=== PATIENT | male | born 1945 | race Caucasian/White ===

== ENCOUNTER → 2019-11-06 10:25 | Outpatient (CLI) | payer MEDICARE, OTHER, SELFPAY ==
--- NOTE | 2019-11-06 | DI.NM.S_ITS ---
PROCEDURE: NM BONE SCAN WHOLE BODY RADIOPHARMACEUTICAL: 19.7 mCi Tc-99m MDP IV. INDICATIONS: prostate cancer TECHNIQUE: Delayed whole-body scintigrams were obtained approximately 3-4 hours after intravenous injection of radiotracer. Anterior and posterior views were acquired from vertex to feet. Additional left and right oblique views of the pelvis were obtained. COMPARISON: [facility], CT, CT CHEST ABD PEL W CON, 11/06/2019, 11:29. FINDINGS: There is mild asymmetric uptake at the left sternoclavicular joint likely representing degenerative changes as seen on the concurrent CT. Mild periarticular uptake also demonstrated in the shoulders, knees, and feet bilaterally compatible with degenerative changes. No definite suspicious focal uptake to suggest osseous metastatic disease. IMPRESSION: 1. No definite evidence of osseous metastatic disease. Dictated by: Angel Mcnair M.D. on 11/06/2019 at 17:35 Approved by: Angel Mcnair M.D. on 11/06/2019 at 17:44
--- NOTE | 2019-11-06 | DI.CT.S_ITS ---
PROCEDURE: CT CHEST ABD PEL W CON INDICATIONS: prostate cancer TECHNIQUE: After the administration of oral and intravenous contrast, 5 mm thick sections acquired from the lung apices to the symphysis. 5 mm coronal and sagittal reformats were performed, with additional 7 mm coronal MIP reformats through the lungs. For radiation dose reduction, the following was used: automated exposure control, adjustment of mA and/or kV according to patient size. COMPARISON: [place], [place], [place] BONE SCAN WHOLE BODY, 11/06/2019, 14:20. FINDINGS: Image quality: Excellent. CHEST: Lungs and pleura: Within the right lower lobe, there is a 4 mm pulmonary nodule on series 3 image to 37. Mild subpleural scarring is demonstrated within the inferior right middle lobe and left lingula and medial right lower lobe. No pleural effusions or pneumothorax. Central and peripheral airways appear patent and normal in caliber. Mediastinum: Heart size is normal. No pericardial effusion. No mediastinal or hilar adenopathy by size criteria. Thoracic aorta and central pulmonary arteries are normal in size. There is scattered atherosclerotic plaque. Esophagus is normal in caliber. No hiatal hernia. Chest wall: No axillary or supraclavicular adenopathy by size criteria. Thyroid gland is partially visualized. ABDOMEN: Solid organs: Evaluation of the liver demonstrates no focal hepatic lesions. The gallbladder appears within normal limits without calcified gallstones. Biliary system is non-dilated. Pancreas enhances normally. No peripancreatic fat stranding or fluid collections. No pancreatic duct dilatation. The spleen is normal in size. No adrenal nodules. Kidneys demonstrate no definite hydronephrosis. There are bilateral parapelvic renal cysts. Peritoneum and bowel: Bowel loops demonstrate normal wall thickness and caliber. The appendix is normal in appearance. There is colonic diverticulosis without acute diverticulitis. No No free fluid or air. Nodes and vessels: No retroperitoneal or mesenteric adenopathy by size criteria. Aorta and inferior vena cava are normal in size. Miscellaneous: No ventral hernias. PELVIS: Genitourinary: Bladder wall thickness is normal. There is heterogeneous enlargement of the prostate. No definite extraprostatic mass extension. Miscellaneous: No inguinal hernias or adenopathy. Bones: No suspicious bony lesions. No vertebral body compression fractures. IMPRESSION: 1. Small indeterminate 4 mm pulmonary nodule. A followup CT may be performed until months to demonstrate stability. 2. Elsewhere, no definite evidence of metastatic disease. 3. Enlarged heterogeneous prostate gland. No extraprostatic mass extension or evidence of adjacent solid organ invasion. Dictated by: Angel Mcnair M.D. on 11/06/2019 at 16:02 Approved by: Angel Mcnair M.D. on 11/06/2019 at 16:12
[2019-11-06 11:05] LABS: BUN Creatinine Ratio 22.5 (6-22); Blood Urea Nitrogen 27 mg/dL (9-20); Calcium 9.6 mg/dL (8.4-10.2); Carbon Dioxide 27 mmol/L (22-32); Chloride 101 mmol/L (98-107); Estimated Glomerular Filt Rate 58.9 mL/min (>60); Glucose 102 mg/dL (80-110); HEMOLYSIS < 15 (0-50); Potassium 4.6 mmol/L (3.4-5.1); Sodium 137 mmol/L (137-145)
== END ==
PROVIDERS: Referring Provider Specialist; Visit Provider Specialist
DX: C61 Malignant neoplasm of prostate (principal); R91.1 Solitary pulmonary nodule; N28.1 Cyst of kidney, acquired; K57.90 Diverticulosis of intestine, part unspecified, without perforation or abscess without bleeding
CPT/HCPCS: 36415; 71260; 74177; 78306; 80048; A9503; Q9967

== ENCOUNTER → 2019-12-15 10:22 | Outpatient (CLI) | payer MEDICARE, OTHER, SELFPAY ==
--- NOTE | 2019-12-15 | DI.MRI.S_ITS ---
PROCEDURE: MR PELIS WO/W CON INDICATIONS: Malignant neoplasm of prostate TECHNIQUE: Coronal HASTE, axial T1 FSE with fat saturation, 3-plane nonbreath-hold T2 FSE. After the administration of contrast, dynamic axial, delayed axial and coronal VIBE or 2-D FLASH with fat saturation through the pelvis. Optional diffusion weighted imaging and ADC may be performed. COMPARISON: [facility], CT, CT CHEST ABD PEL W CON, 11/06/2019, 11:29. FINDINGS: Image quality: Diffusion weighted and dynamic contrast enhanced images are diagnostic. Prostate: Gland size is 5.1 x 3.9 x 4.5 cm; ellipsoid gland volume is 47 mL. There is heterogeneous enlargement of the transition zone compatible with BPH. Lesion size(s): Lesion 1: 1.7 x 1.1 x 1.3 cm. Lesion 2: 1.1 x 1.0 x 1.4 cm. Lesion 3: 1.4 x 1.4 x 1.4 cm Lesion location(s) (sector): Lesion 1: Left posterior peripheral zone at the apex of the prostate. Lesion 2: Posterior peripheral zone along the midline at the apex of the prostate. Lesion 3: Right mid transition zone in the mid gland of the prostate. Lesion description: Lesion 1: T2 hypointense lenticular lesion with indistinct margins. Mild posterior extracapsular periprostatic extension is not excluded. Lesion 2: T2 hypointense oval lesion with indistinct margins. Mild posterior extracapsular periprostatic extension is not excluded. Lesion 3: T2 hypointense oval lesion with indistinct margins. T2 weighted imaging (T2WI) morphology score: Lesion 1: 5 Lesion 2: 4 Lesion 3: 4 Diffusion weighted imaging (DWI) morphology score: Lesion 1: 5 Lesion 2: 4 Lesion 3: 3 Dynamic contrast enhancement (DCE): Lesion 1: Present Lesion 2: Present Lesion 3: Absent Lesion PI-RADS score: Lesion 1: PI-RADS 5 Lesion 2: PI-RADS 4 Lesion 3: PI-RADS 4 Genitourinary system: Bladder wall thickness is normal. Distal ureters are non distended. Bowel and peritoneum: No pathologic free pelvic fluid. Inferior colon and small bowel loops are normal in caliber. Nodes and vessels: No pelvic or inguinal adenopathy by size criteria. Iliac vessels are normal in caliber. Soft tissues: No inguinal hernias. Bones: Marrow demonstrates normal overall signal, without lesions to suggest metastases. IMPRESSION: 1. PI-RADS 5 lesion in the left posterior peripheral zone at the apex consistent with a very high likelihood of clinically significant prostate cancer. 2. Adjacent PI-RADS 4 lesion along the midline in the posterior peripheral zone at the apex demonstrates similar imaging findings and also at very high likelihood of clinically significant prostate cancer but measures less than 1.5 cm in dimension. 3. PI-RADS 4 lesion demonstrated within the right transition zone in the mid gland is at high likelihood for clinically significant prostate cancer. 4. Mild posterior extracapsular periprostatic extension of the peripheral zone lesions cannot be excluded. 5. No lymphadenopathy by size criteria or other definite evidence of metastatic disease in the pelvis. Dictated by: Angel Mcnair M.D. on 12/15/2019 at 15:19 Approved by: Angel Mcnair M.D. on 12/15/2019 at 16:04
== END ==
PROVIDERS: PCP Family Medicine; Referring Provider Specialist; Visit Provider Specialist
DX: C61 Malignant neoplasm of prostate (principal)
CPT/HCPCS: 72197; A9579

== ENCOUNTER → 2020-01-16 10:39 | Outpatient (CLI) | payer MEDICARE, OTHER, SELFPAY ==
[2020-01-16 22:00] LABS: COVID19 Sendout Not Detected (Not Detect)
== END ==
PROVIDERS: PCP Family Medicine; Visit Provider Physician Assistant
DX: Z01.812 Encounter for preprocedural laboratory examination (principal)
CPT/HCPCS: 87635

== ENCOUNTER 2020-01-20 06:49 | Inpatient (IN) | payer MEDICARE, OTHER, SELFPAY ==
[2020-01-15 12:02] VITALS: BMI 24.0
[2020-01-20] VITALS (14 sets, daily range): BP systolic 119–153; BP diastolic 63–94; PULSE 57–78; RESP 10–18; TEMP 35.7–37.7; O2SAT 95–100; BMI 23.1
--- NOTE | 2020-01-20 | PATH_ITS ---
[facility] Accession Number: [id number] . 01 Material submitted: . PART A: lymph node - RIGHT PELVIC LYMPH NODE PART B: lymph node - LEFT PELVIC LYMPH NODE PART C: prostate - PROSTATE . 01 Clinical history: . RADICAL RETROPUBIC PROSTATECTOMY . 02 Diagnosis: A. Right Pelvic Lymph Node, Excision: Three lymph nodes negative for metastatic carcinoma. . B. Left Pelvic Lymph Node, Excision: One lymph node negative for metastatic carcinoma. . C. Prostate, Radical Prostatectomy: Prostatic adenocarcinoma. Please see CAP Summary data below: . Surgical Pathology Cancer Case Summary: . Procedure: Radical prostatectomy. Prostate Size: Weight: 42 grams. Size: 3.3 cm x 4.6 cm x 4.7 cm. Histologic Type: Acinar adenocarcinoma. Histologic Grade: Grade group 4 ([place] score 4+4=8). Percentage of Pattern 4: 90%. Percentage of Pattern 5: 0%. Percentage of Pattern 3: 10%. Intraductal Carcinoma: Not identified. Tumor Quantitation: Tumor Size: Greatest dimension: 22 mm. Extraprostatic Extension: Present, focal. Location of Extraprostatic Extension: Left posterior. Urinary Bladder Neck Invasion: Not identified. Seminal Vesicle Invasion: Not identified. Lymphovascular Invasion: Present. Perineural Invasion: Present. Additional Pathologic Findings: High-grade prostatic intraepithelial neoplasia (PIN). . Margins: Involved by invasive carcinoma, limited (less than 1 mm). Focality: Unifocal. Location of Positive Margin: Left posterior. Margin Positivity in Area of Extraprostatic Extension: Present. Chu Pattern at Positive Margin: Pattern 4. . Treatment Effect: No known presurgical therapy. . Regional Lymph Nodes: Number of Lymph Nodes Involved: 0. Number of Lymph Nodes Examined: 4. . Pathologic Stage Classification (pTNM, AJCC 8th Edition): TNM Descripters: m (multiple). Primary Tumor: pT3a. Regional Lymph Nodes: pN0. [facility] 01/22/2020 1705 Local . 02 Comment: As part of routine quality review specialist, Dr. Horn also reviewed selected slides and agrees with the presence of adenocarcinoma and focal margin involvement. . 02 Electronically signed: . Sylvia Blanco MD, Pathologist NPI- [id number] . 01 Gross description: . (A) Received in formalin, labeled R pelvic lymph node, is a lymph node (4.5 x 1.6 x 0.5 cm) with attached adipose tissue which contains two smaller lymph nodes (0.7 x 0.5 x 0.2 cm and 0.9 x 0.5 x 0.3 cm). The large lymph node is serially sectioned and entirely submitted in cassettes A1-A3 and the small ones are submitted intact in cassette A4. (B) Received in formalin, labeled L pelvic lymph node, is a lymph node (3.0 x 1.3 x 0.6 cm) with attached adipose tissue. Serially sectioned and entirely submitted in cassettes B1-B2. (C) Received in formalin, labeled prostate, is a prostate gland (42 grams, 3.3 AP, 4.6 cm SI, 4.7 cm ML) with attached seminal vesicles (right-3.1 x 1.5 x 0.8 cm; left-2.3 x 1.0 x 0.5 cm), and vasa deferentia (right: length-2.8 cm, diameter-0.3 cm; left: length-2.9 cm, diameter-0.3 cm). The parenchyma is ibarra-white with a focally nodular appearance. No definitive nodules, masses or lesions are identified. The seminal vesicles and vas deferens are unremarkable. The prostate gland is serially sectioned from base to apex into eight slices not including the base and apex margins. Ink code: purple-right anterior; orange-left anterior; green-right posterior; black-left posterior. Section code: (C1) right vas deferens resection margin en face and cash applications representative serial sections; (C2) left vas deferens resection margin en face and cash applications representative serial sections; (C3-C4, C5-C6) seminal vesicle-base junction, bisected cash applications representative serial sections submitted proximal to distal and right to left; (C7-C8) base, perpendicularly sectioned, entirely submitted right to left; (C9-C12) slice 1, quartered, entirely submitted; (C13-C16) slice 3, quartered, entirely submitted; (C17-C20) slice 5, quartered, entirely submitted; (C21-C24) slice 7, quartered, entirely submitted; (C25) apex, perpendicularly sectioned, entirely submitted. ([id number]) /MRV 01/22/2020 1705 Local . 02 Pathologist provided ICD-10: C61 . 02 CPT . 458078, [id number], [id number] Performed at: 01 [facility] [address] [facility], [place], [place] [id number] MD Angel Jackson MD Phone: [phone] Performed at: 02 [facility] [address] [place], [place] [id number] MD Sylvia Blanco MD Phone: [phone]
[2020-01-20] MEDS: LACTATED RINGERS 1,000 ML 42 ML IV ×2 (07:19→09:16)
[2020-01-20] MEDS: GABAPENTIN 300 MG CAPSULE PO (07:19)
--- NOTE | 2020-01-20 07:35 | PM.PREOP ---
Pre-operative Note Interval Note History & Physical reviewed/Exam performed by Physician: Yes Changes to H&P: No H&P completed within 30 days and has changed as indicated here:: There are no changes to the history and physical examination dated 12/30/2019 scanned on file.
[2020-01-20] MEDS: CEFAZOLIN 2 GM/100 ML FROZ.PIGGY IV (08:05)
[2020-01-20] MEDS: ACETAMINOPHEN IV 1,000 MG/100 ML VIAL 400 MG IV (08:19)
--- NOTE | 2020-01-20 08:37 | SUR.OPER ---
Supine on padded OR bed, head on pillow, arms secured on padded arm boards at <90 degrees abduction, legs uncrossed, pillow under knees, safety belt at thigh, tape over blanket over lower legs.
[2020-01-20] MEDS: BUPIVACAINE LIPOSOME 266 MG/20 ML VIAL INJ (08:57)
[2020-01-20] MEDS: SODIUM CHLORIDE 0.9% FLUSH 10 ML IV (10:21)
--- NOTE | 2020-01-20 10:51 | PM.OP.1 ---
Operative Date/Time/Diagnoses Date of procedure: 01/20/20 Time of procedure: 10:51 Pre-op diagnosis: Adenocarcinoma of the prostate Post-op diagnosis: same Procedure & Clinicians Procedure: Radical retropubic prostatectomy Same procedure as scheduled: Yes Indications: Adenocarcinoma of the prostate Surgeon: Denys Gaitan Skill Training Program Coordinator: Nargis Ding Anesthesia Type: General, Spinal and Local Operative Notes Findings: 1. Essentially normal tissue planes. 2. Visually and palpably normal bilateral pelvic lymph node packets. 3. The bilateral obturator nerves were observed and preserved during no dissection. 4. The prostate was moderately enlarged. The capsule appeared grossly intact. Closure Type: primary Specimen(s): other (Bilateral pelvic lymph nodes and prostate) Applied: catheter (#18 Martiniquais soft silicone Porras catheter) and drain(s) (# 15 Martiniquais fenestrated pelvic drain) Estimated Blood Loss (mL): 150 Blood products transfused: none Tourniquet time (min): 0 Procedure in detail: The patient was positioned supine and administered general anesthesia following successful placement of Duramorph spinal anesthesia. The abdomen and genitalia were prepped and draped in sterile fashion. A 22 Martiniquais Porras catheter was inserted and lower urinary tract and the balloon filled 20 cc. A midline infraumbilical incision was then conducted using sharp cautery and blunt technique to enter the retroperitoneal pelvis. The space of Retzius a lateral pelvic sidewalls were then carefully exposed using blunt technique. The adventitia overlying the right external iliac vein was then carefully divided along its length utilizing blunt and cautery dissection and the hannah packet was mobilized from the lateral pelvic sidewall. The obturator nerve and artery were identified and preserved. The hannah packet was then removed and submitted to pathology for routine gross and microscopic examination. The exact same steps and maneuvers were performed on the left side. The endopelvic fascia was then incised on either side of the prostate near the pelvic floor. The dorsal venous complex was then gathered and secured with the large Homar clamp. An 0 Monocryl was then utilized to suture ligate the dorsal venous complex. Next this tissue was divided above the ligature using the LigaSure Impact device hemostasis was excellent bilateral apically tissue at the prostate membranous urethral interface were then carefully dissected and using blood tech knee. Incisions were made on the lateral aspects of the prostate bilaterally the full length and the thin envelope of arthur prostatic fascia was then carefully rolled posteriorly toward the rectum using blunt technique in an effort to preserve the cavernous nerves. Next the urethra was isolated from the anterior rectal wall and was divided just distal to the prostatic apex. The apex of the prostate was then gently reflected superiorly anteriorly the rectal urethralis musculature was divided using sharp and cautery technique a plane was developed between Denonvilliers fascia and anterior rectal wall. The posterior lateral vascular bundles were then isolated and its small gather rings and clipped proximally and distally with locking plastic hemo lock clips before division sharply. Now with the prostate largely reflected anteriorly and superiorly to non VA Garry fascia was divided transversely over the bases of the seminal vesicle and ampulla vas bilaterally the seminal vesicles were carefully dissected out using medium hemo lock plastic clips and sharp technique each of the of Vasa were isolated and large heme lock plastic clips were applied proximally distally and then transected sharply. Next the bladder neck prostate static base anatomy was addressed and careful blunt cautery dissection with the LigaSure Impact device was utilized to separate the bladder neck from prostatic base. The prostate and attached seminal vesicles were then submitted to pathology for routine gross and microscopic examination. The bladder neck was then repaired by a facing the mucosa externally using 4 0 Monocryl a single simple horizontal mattress of left over 0 Monocryl was utilized to create a small tennis-racket repair posteriorly The Romi sound was then positioned in the lower urinary tract and the flanges were activated to expose the membranous urethra 2 0 Monocryl were placed from extra to read interior on the membranous urethra at the 2468 and 10:00 a.m. positions the same suture were then brought through their corresponding locations in the neobladder neck. An 18 Martiniquais silicone Porras catheter was then passed lower urinary tract and was placed within the bladder lumen under direct visualization the balloon was then filled to 15 cc gentle traction was applied to reapproximate the membranous urethra and neobladder neck. The anastomotic sutures were then each tied individually to complete the vesicourethral anastomosis. The catheter was and interior of the bladder were then irrigated clear with sterile saline next a 15 Martin[place]ais Citizen [place] traded pelvic drain was placed along the lateral gutters and anteriorly above the anastomosis and brought out through a separate stab incision to the right of the midline incision. This was secured to the skin with 2 0 silk using a VII hole technique. The midline fascia was then closed with a running 0 PDS Evonne subcutaneous layer was closed with a running 3 0 Vicryl. The skin was reapproximated with a running subcuticular 4 0 Monocryl. Thin strip a Telfa was then fashion to cover the incision a small sq to cover the drain site each was then covered with a Bioclusive op site dressing. The pelvic drain was placed to bulb self suction. The catheter and bag were secured to the patient's leg. He was then awakened [facility], and transported to recovery in stable condition. Complications: none Post-operative Condition: stable Disposition: PACU Plan for aftercare: Admit to acute care.
[2020-01-20] MEDS: LACTATED RINGERS 1,000 ML 120 ML IV (13:15)
--- NOTE | 2020-01-20 14:07 | PC.NURSE ---
Patient to floor 1245, alert,oriented, denies pain and nausea. Ate lunch without difficulty. Porras patent and draining pink tinged urine. Placed on 1L O2, desats to 88% on RA while asleep. Patient oriented to room and call light. Alarm on.
[2020-01-20] MEDS: ONDANSETRON 4 MG/2 ML INJ IV (15:02)
[2020-01-21] VITALS (8 sets, daily range): BP systolic 121–130; BP diastolic 55–67; PULSE 66–86; RESP 14–20; TEMP 36.9–37.2; O2SAT 95–98
[2020-01-21] MEDS: LACTATED RINGERS 1,000 ML 120 ML IV (04:31)
--- NOTE | 2020-01-21 07:18 | PM.PN.1 ---
Subjective Subjective Date Patient Seen: 01/21/20 Time Patient Seen: 07:18 Interval history: The patient reports a restful night mild incisional pain well controlled with analgesics. He is tolerating fluids well. He has only had small general diet thus far. Exam Vital Signs (past 8 hours): - 01/21/20 04:38 Temperature 98.9 F Pulse Rate 69 Respiratory Rate 18 Blood Pressure 130/67 Pulse Oximetry 97 Oxygen Delivery Method Room Air Oxygen Flow Rate 0 Narrative Exam Narrative: He is lining comfortably in bed in no acute distress. Chest-equal and nonlabored expansion bilaterally. Heart-regular rate. Abdomen-soft flat. Incisional and drain dressing are intact. SAPPHIRE drain has scant serosanguineous output. Extremities-no edema or cyanosis, SCDs are in place. Porras-clear output, no clots. Assessment & Plan Assessment & Plan narrative: Assessment: 1. Stable postoperative day 1. Status post radical prostatectomy. Plan: 1. Increase diet and activity. 2. Catheter care and use instruction. 3. Pathology pending.
[2020-01-21] MEDS: ENOXAPARIN 30 MG/0.3 ML SYRINGE SUBCUT (08:45)
[2020-01-21] MEDS: ASPIRIN EC 81 MG TABLET PO (08:45)
[2020-01-21] MEDS: THIAMINE 100 MG TABLET PO (08:46)
[2020-01-21] MEDS: SODIUM CHLORIDE 0.9% FLUSH 10 ML IV ×2 (08:46→22:09)
[2020-01-21] MEDS: allopurinoL 300 MG TABLET PO (08:46)
[2020-01-21] MEDS: lisinopriL 10 MG TABLET PO (08:46)
[2020-01-21] MEDS: hydroCHLOROthiazide 25 MG TABLET PO (08:46)
[2020-01-21] MEDS: MULTIVITAMIN 1 TABLET 1 TAB PO (08:46)
--- NOTE | 2020-01-21 09:03 | CM.DANOTE ---
DCP: Case received, EMR reviewed and met with patient. Introduced self and role. Was able to meet with patient in his room and obtain information regarding his baseline activity level. DCP assessment completed with information currently available. Patient is a 74 year old male who admitted yesterday morning to the care of the urology team. PCP: Dr. Monte. Payer: confirmed: Medicare/[employer]. Patient came to the hospital via private vehicle for a surgical procedure. He had a radical prostatectomy done. He has history of malignant neoplasm. Met with patient in his room. He is alert and oriented, and sitting up in his bed. Pleasant. He is independent at baseline, drives. He resides on [facility] with his spouse, Dunia. He stated that he should be going home tomorrow, according to Dr. Gaitan. Conf[place] that [place]. P: DCP to continue to follow. Patient will be going home when he is medically stable, could be tomorrow. Charu Hart RN/Weight Reducing Technician
[2020-01-21] MEDS: OXYCODONE IR 5 MG TABLET PO ×2 (16:22→22:08)
[2020-01-21] MEDS: ACETAMINOPHEN 325 MG TABLET 650 MG PO ×2 (16:23→22:08)
--- NOTE | 2020-01-21 17:10 | PC.NURSE ---
1630 - Pt reports increased pain. 02/07, c/o feeling tight. Porras catheter with hematuria, no visual clots. Catheter care provided. RX given for pain. Reinforced safety. Pt verbalized understanding. Call light in reach.
[2020-01-21] MEDS: DOCUSATE 100 MG CAPSULE PO (22:07)
[2020-01-22 06:02] VITALS: BP 131/71; PULSE 65; RESP 15; TEMP 37.2; O2SAT 96
[2020-01-22 07:50] VITALS: BP 124/70; PULSE 62; RESP 16; TEMP 37.4; O2SAT 96
[2020-01-22 08:40] VITALS: O2SAT 96
[2020-01-22] MEDS: lisinopriL 10 MG TABLET PO (08:47)
[2020-01-22] MEDS: THIAMINE 100 MG TABLET PO (08:47)
[2020-01-22] MEDS: ENOXAPARIN 30 MG/0.3 ML SYRINGE SUBCUT (08:47)
[2020-01-22] MEDS: ASPIRIN EC 81 MG TABLET PO (08:47)
[2020-01-22] MEDS: SODIUM CHLORIDE 0.9% FLUSH 10 ML IV (08:47)
[2020-01-22] MEDS: MULTIVITAMIN 1 TABLET 1 TAB PO (08:47)
[2020-01-22] MEDS: hydroCHLOROthiazide 25 MG TABLET PO (08:47)
[2020-01-22] MEDS: allopurinoL 300 MG TABLET PO (08:47)
[2020-01-22] MEDS: OXYCODONE IR 5 MG TABLET PO (09:24)
[2020-01-22 12:06] VITALS: BP 132/75; PULSE 65; RESP 16; TEMP 36.8; O2SAT 96
--- NOTE | 2020-01-22 13:48 | PM.DS.1 ---
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 Available treatment options were discussed at length with he and his . He is admitted on the morning of 01/20/2020 for planned radical retropubic prostatectomy. Discharge Providers Provider Date of admission: 01/20/20 06:49 Discharge Date: 01/22/20 Primary care physician: Kash Monte MD Consults: 01/20/20 11:09 Consult to Discharge Planning Routine Comment: Discharge provider: Denys Gaitan MD Summary Hospital Course Discharge Diagnosis: Adenocarcinoma of the prostate Hospital Course: The patient was admitted on the morning of 01/20/2020 and underwent uncomplicated radical retropubic prostatectomy under Duramorph spinal and general anesthesia. His postoperative course was largely unremarkable other than transient nausea and small vomiting the evening immediate postoperative when he attempted to take general diet. He otherwise was able ambulate without assistance and had excellent pain control with scheduled and as needed analgesics. On the afternoon of 01/22/2020 he was stable for discharge. He has provided prescriptions for Lovenox, ciprofloxacin and oxycodone. Administration instructions and common side effects were reviewed. Postoperative activity hygiene and driving instructions and restrictions were discussed. Pathology was pending at discharge. Catheter removal is planned on [place] at home or in primary care physician's office on the morning of 02/02/2020. A postoperative visit will be scheduled in my office in 6-8 weeks with a PSA and PVR. Status at Discharge Cognitive/behavioral status at discharge: oriented Functional status at discharge: independent ambulation Overall status at discharge: patient is back to baseline Exam Vital Signs (past 8 hours): - 01/22/20 06:02 01/22/20 07:50 01/22/20 08:40 Temperature 99.0 F 99.3 F Pulse Rate 65 62 Respiratory Rate 15 16 Blood Pressure 131/71 124/70 Pulse Oximetry 96 96 96 01/22/20 12:06 Temperature 98.3 F Pulse Rate 65 Respiratory Rate 16 Blood Pressure 132/75 Pulse Oximetry 96 Oxygen Delivery Method Room Air Oxygen Flow Rate 0 Discharge Plan Discharge Plan Patient Disposition: Home Discharge comment: 1. No lifting objects heavier than 15 lb for 4 weeks. 2. No driving until catheter removed. 3. Remove Porras catheter as instructed in the a.m., February 02, 2020. Discharge orders & Medications Prescriptions: New oxycodone 5 mg Tablet 5 mg PO Q6HR PRN (Reason: Pain, Moderate (4-6)) Qty: 20 RF: 0 enoxaparin [Lovenox] 30 mg/0.3 mL Syringe 30 mg SUBCUT DAILY Qty: 30 RF: 0 ciprofloxacin HCl 250 mg tablet 250 mg PO BID Qty: 6 RF: 0 Continued aspirin 81 mg Tablet,Delayed Release (Dr/Ec) 81 mg PO DAILY RF: 0 lisinopril 10 mg Tablet 10 mg PO DAILY RF: 0 allopurinol 300 mg Tablet 300 mg PO DAILY RF: 0 hydrochlorothiazide 25 mg Tablet 25 mg PO DAILY RF: 0 Follow up/Referrals: Denys Gaitan MD [Physician] - Kash Monte MD [Primary Care Provider] - Diet/Activity/Treatments Diet: Diet as Tolerated Activity: 1. No lifting of objects greater than 15 lb for 4 weeks. 2. No driving until catheter removed. 3. May shower as needed. No bathing swimming or hot tubbing until catheter out. Catheter: 2-way Porras Catheter comment: Instructed on proper catheter removal a.m. February 01, 2020. Skin/Wound/Dressing Care Report to your healthcare provider any signs of infection, such as:: chills, fever, increased pain, unusual drainage and unusual redness Dressing: Leave abdominal incision open to air. Pat dry with clean towel after showering. Visit Report/Discharge Packet Instructions: How to Care for Your Porras Catheter -- Male, DI for Radical Prostatectomy, DI for Prescription Opioid Use, Oxycodone Stand Alone Forms: Surgery Discharge Discharge Data Primary Care Provider: Kash Monte
[2020-01-22] MEDS: BISACODYL 10 MG SUPP PR (14:05)
--- NOTE | 2020-01-22 14:33 | PC.NURSE ---
Discharge Pt states pain increased today and requested pain meds which were given. Pt sleeping after admin. d/c instructions provided to pt. reviewed briefly with at car. Rx for oxy given to pt at d/c. instructed on how to remove wallace and also care for it. Instructed on changing to leg bag and also inserting plug for showering if desired. noah drain removed and dressing removed as well as ordered. aware of f/u apts with Dr Gaitan and to contact him with any additional questions or concerns. pt left in w/c with RN escort to car with his .
--- NOTE | 2020-01-23 10:25 | PC.NURSE ---
Late entry Pt's called and stated that their pharmacy, [facility], did not have a record of any Rx as of this morning. Looked at d/c instructions and they were sent to [facility] in [place]. Called there and that Rx was stopped. Spoke with Dr Gaitan and Rx were called to [facility] in [facility] [place] [facility]. Notified pt's that Rx were called into correct pharmacy.
== END 2020-01-22 14:30 | disposition home or self-care (01) | DRG 708 ==
PROVIDERS: Admitting Provider Specialist; PCP Family Medicine; Referring Provider Specialist; Visit Provider Specialist
PROC: 0VT00ZZ Resection of Prostate, Open Approach (ICD-10-PCS; principal; 2020-01-20 07:45)
DX: C61 Malignant neoplasm of prostate (principal); I10 Essential (primary) hypertension; M10.9 Gout, unspecified; Z80.42 Family history of malignant neoplasm of prostate
CPT/HCPCS: 87086; C9290; J0131; J0330; J0690; J1650; J2274; J2405; J2704

== ENCOUNTER 2020-02-19 14:18 | Emergency (ER) | payer MEDICARE, OTHER, SELFPAY ==
[2020-01-20 11:49] VITALS: BMI 23.1
[2020-02-19 14:21] VITALS: BP 149/80; PULSE 91; RESP 15; TEMP 36.6; O2SAT 99; BMI 23.3
--- NOTE | 2020-02-19 15:07 | ED.BACK ---
HPI - Back Pain/Injury General Chief Complaint: Back Pain/Injury Stated Complaint: Lower back pain Time Seen by Provider: 02/19/20 14:52 Source: patient Mode of arrival: Ambulatory Limitations: no limitations History of Present Illness HPI Narrative: 74-year-old male who 1 month ago and underwent a prostatectomy. Has been on Lovenox until yesterday. Approximately 4 days ago started having right-sided lower back pain radiating down to the front of his right leg. No problems urinating. No problems with bowel movements. No fevers. Has tried the pain medication he had at home left over from his surgery which she states does help the pain but then as the medicine wears off his pain returns. No fevers. Related Data Home Medications Medication Instructions Recorded Confirmed allopurinol 300 mg PO DAILY 01/15/20 01/20/20 aspirin 81 mg PO DAILY 01/15/20 01/20/20 hydrochlorothiazide 25 mg PO DAILY 01/15/20 01/20/20 lisinopril 10 mg PO DAILY 01/15/20 01/20/20 Previous Rx's Medication Instructions Recorded ciprofloxacin HCl 250 mg PO BID #6 tab 01/22/20 enoxaparin [Lovenox] 30 mg SUBCUT DAILY #30 ml 01/22/20 oxycodone 5 mg PO Q6HR PRN #20 tab 01/22/20 Allergies Allergy/AdvReac Type Severity Reaction Status Date / Time No Known Drug Allergies Allergy Verified 02/19/20 14:21 Review of Systems Constitutional Constitutional: Denies fever(s) Cardiovascular Cardiovascular: Denies chest pain and Denies dyspnea Respiratory Respiratory: Denies dyspnea Gastrointestinal Gastrointestinal: Denies abdominal pain, Denies nausea and Denies vomiting Genitourinary Genitourinary: Denies dysuria and Denies testicular pain Musculoskeletal Musculoskeletal: Reports back pain and Reports myalgias (Right anterior thigh) Integumentary/Breasts Skin/Breast: Denies lesions and Denies rash Neurologic Neurologic: Denies behavioral changes Psychiatric Psychiatric: Denies behavioral changes Hematologic/Lymphatic Comments: On Lovenox Patient History Medical History BCC (basal cell carcinoma) (Acute) Gout (Acute) HLD (hyperlipidemia) (Acute) HTN (hypertension) (Acute) Prostate cancer (Acute 2020) Surgical History (Updated 01/15/20 @ 12:23 by Siobhan Alonso RN) Hx of arthroscopy of shoulder (Acute) Hx of bilateral cataract extraction (Acute) Hx of prostate biopsy (Acute 11/19/19) Hx of tonsillectomy (Acute) Status post Mohs surgery (Acute) Social History household members: spouse Smoking Status: Never smoker alcohol intake: current Smoking Status: Never smoker alcohol intake frequency: 3 or more drinks per day Substance Use Type: does not use Exam Initial Vital Signs Initial Vital Signs: Vital Signs Temperature 97.9 F 02/19/20 14:21 Pulse Rate 91 H 02/19/20 14:21 Respiratory Rate 15 02/19/20 14:21 Blood Pressure 149/80 H 02/19/20 14:21 Pulse Oximetry 99 02/19/20 14:21 Const General: cooperative, comfortable and well developed Limitations: mental status not altered HENMT Head: normal to inspection and normocephalic Resp Effort & Inspection: normal respiratory effort Cardio Rate: regular rate Back/Spine/Pelvis Back: No CVA tenderness Thoracic/Lumbar Spine: paraspinal tenderness (Right lumbar), No thoracic spinal tenderness and No lumbar spinal tenderness Skin Lesions: no lesions Rashes: no rashes Neuro General: alert, awake and oriented x3 Speech: speech normal Gait: normal gait Extrem General: normal to inspection and capillary refill normal Psych Appearance: grossly normal and well kempt Course Orders Ordered: ED Orders 02/19/20 15:08 CT kidney ureter bladder (KUB) Stat 02/19/20 16:36 Complete Blood Count AUTO DIFF Stat Prostate Specific Antigen Routine Discontinued Medications Hydromorphone HCl (Dilaudid) 1 mg IM NOW ONE Stop: 02/19/20 15:08 Last Admin: 02/19/20 15:29 Dose: 1 mg Documented by: MEISENKatie Vital Signs Vital signs: Vital Signs - 8 hr 02/19/20 14:21 02/19/20 15:36 Temperature 97.9 F Pulse Rate 91 H 63 Respiratory Rate 15 18 Blood Pressure 149/80 H Blood Pressure [Left Arm] 144/67 H Pulse Oximetry 99 98 MDM - Back Pain/Injury Lab Data Attestation: I reviewed the patient's lab results. Result diagrams: 02/19/20 16:36 Labs: Lab Results 02/19/20 02/19/20 Range/Units 16:36 16:36 WBC 8.4 (4.5-11.0) X10^3/uL RBC 4.80 (4.5-5.9) X10^6/uL Hgb 14.1 (13.5-17.5) g/dL Hct 40.8 L (41-53) % MCV 85.1 (80-100) fL MCH 29.4 (26-34) PG MCHC 34.5 (30-36) % RDW 14.7 (11.6-14.8) % Plt Count 240 (150-400) X10^3/uL Neut % (Auto) 69.9 (50-75) % Lymph % (Auto) 20.6 L (25-40) % [place] % (Auto) 7.4 (3-14) % Eos % (Auto) 1.9 L (2-4) % Baso % (Auto) 0.2 (0-2) % Neut # (Auto) 5900 (7886-2238) /uL Lymph # (Auto) 1700 (2906-1880) /uL [place] # (Auto) 600 (0-900) /uL Eos # (Auto) 200 (0-450) /uL Baso # (Auto) 0 (0-100) /uL Prostate Specific Ag 2.80 (0.10-4.00) ng/mL Urine Dip Bedside Urine Glucose Negative Bedside Urine Bilirubin - Negative Bedside Urine Ketone - Negative Urine Specific [place] 1.025 Bedside Urine Occult Blood +/- Bedside Urine pH 6.0 Bedside Urine Protein +/- 15 Bedside Urine Urobilinogen - Negative Bedside Urine Nitrite - Negative Bedside Urine Leukocytes - Negative Esterase Imaging Data CT scan - abdomen/pelvis: Radiologist's Impression: [address] [address] [address] Scan Report Signed Patient: Miguel Ruth RMR#: [id number] : [id number]:[id number] Age/Sex: 74 / MDate of Service: 02/19/20 Loc: ED Accession Number: [id number] Procedure: CT kidney ureter bladder (KUB) Ordering Provider: Xavier Parikh D.O. PROCEDURE: CT KIDNEY URETER BLADDER (KUB) INDICATIONS: Right-sided pain concern for stone TECHNIQUE: Noncontrast 5 mm thick sections acquired from the diaphragms to the symphysis. 5 mm thick coronal and sagittal reformats were then performed. For radiation dose reduction, the following was used: automated exposure control, adjustment of mA and/or kV according to patient size. COMPARISON: None. FINDINGS: Image quality: Excellent. Lung bases: No pleural effusion. 3 mm pulmonary nodule at the right lung base (3/8), unchanged. Heart size is normal. Aortic valvular calcifications. Urinary system: Both kidneys are normal in size. Probable small parapelvic cysts. No kidney stones. No hydronephrosis or perinephric fat stranding. Both ureters appear non-dilated throughout their expected courses. No hydroureter. Bladder is decompressed; no calcified bladder stones. Other solid organs: Liver is normal in size. Gallbladder is decompressed. Pancreas is normal in contours. Spleen is normal in size. No adrenal nodules. Peritoneum and bowel: Bilobed fluid collection in the right psoas musculature and right pelvic sidewall measuring 10.5 x 5.6 x 3.9 cm, (34 and 66). This measures fluid density (12 Hounsfield units). However, at the superior aspect there is a hyperdense component measuring 53 Hounsfield units, (/61). There is a 2nd low-density fluid collection in the left pelvic side wall musculature measuring 3 x 2.7 x 2 cm (75 and ). These findings are new compared to the CT 11/06/2019. No bowel obstruction. Redundant sigmoid colon. Scattered sigmoid diverticulosis. Appendix is normal in caliber. Prominent stool in the rectum. No free fluid or air. Nodes and vessels: No retroperitoneal or mesenteric adenopathy by size criteria. Aorta and inferior vena cava are normal in caliber. Moderate aortoiliac atherosclerotic calcification. Atherosclerotic calcification within the CASEY. Abdominal wall: No ventral hernias. Left gluteus medius intramuscular lipoma. Pelvis: No free pelvic fluid. No inguinal hernias or adenopathy. Coarse calcification deep to the inguinal canals, unchanged. Status post prostatectomy. Bones: No suspicious bony lesions. No vertebral body compression fractures. IMPRESSION: 1. Right psoas, and right and left pelvic sidewall fluid collections which are new compared to 11/06/2019. These most likely represent intramuscular hematomas. Abscess is felt to be less likely in the absence of fevers. 2. Status post prostatectomy. No free fluid in the pelvis. 3. No hydronephrosis or hydroureter. No kidney stones. Comment: Findings were discussed with Xavier Parikh at the time of dictation. Reports Lovenox injections. Pain started approximately 4 days ago. Dictated by: Adama Newsome M.D. on 02/19/2020 at 15:27 Approved by: Adama Newsome M.D. on 02/19/2020 at 15:4 MDM Narrative Medical decision making narrative: No fevers. Low suspicion for cauda equina. CT scan does show what looks to be a psoas hematoma. I suspect this is from his Lovenox. I have lower suspicion that this is an abscess based on his history and physical. I did discuss this with the patient. CBC was ordered so that we can have a baseline H&H in case his symptoms worsen. He was instructed to stop the Lovenox. I did discuss this with his urologist who agreed with this course of action. Will send the patient home with symptom treatment. He was given return precautions and follow-up instructions. He expressed understanding and agreement. Discharge Plan Departure Patient Disposition: Home Clinical Impression: Hematoma of right psoas region to anticoagulant therapy Qualifiers: Encounter type: initial encounter Qualified Code(s): S30.1XXA - Contusion of abdominal wall, initial encounter Discharge Date/Time: 02/19/20 16:49 Activity Restrictions/Additional Instructions: I recommend that you stop taking the enoxaparin/Lovenox. Recommend that you keep all of your follow-up appointments with your primary doctor and also your urologist. Return to the emergency department for any new or worsening symptoms Prescriptions: No Action aspirin 81 mg Tablet,Delayed Release (Dr/Ec) 81 mg PO DAILY RF: 0 lisinopril 10 mg Tablet 10 mg PO DAILY RF: 0 allopurinol 300 mg Tablet 300 mg PO DAILY RF: 0 hydrochlorothiazide 25 mg Tablet 25 mg PO DAILY RF: 0 oxycodone 5 mg Tablet 5 mg PO Q6HR PRN (Reason: Pain, Moderate (4-6)) Qty: 20 RF: 0 enoxaparin [Lovenox] 30 mg/0.3 mL Syringe 30 mg SUBCUT DAILY Qty: 30 RF: 0 ciprofloxacin HCl 250 mg tablet 250 mg PO BID Qty: 6 RF: 0 Referrals: Kash Monte MD [Primary Care Provider] -
[2020-02-19] MEDS: HYDROMORPHONE 1 MG INJ IM (15:29)
[2020-02-19 15:36] VITALS: BP 144/67; PULSE 63; RESP 18; O2SAT 98
[2020-02-19 16:44] LABS: Add Manual Diff / Slide Review NO; Basophils Absolute Auto 0 /uL (0-100); Basophils Percent Auto 0.2 % (0-2); Eosinophils Absolute Auto 200 /uL (0-450); Eosinophils Percent Auto 1.9 % (2-4); Hematocrit 40.8 % (41-53); Hemoglobin 14.1 g/dL (13.5-17.5); Lymphocytes Absolute Auto 1700 /uL (1100-4500); Lymphocytes Percent Auto 20.6 % (25-40); Mean Corpuscular HGB Conc 34.5 % (30-36); Mean Corpuscular Hemoglobin 29.4 PG (26-34); Mean Corpuscular Volume 85.1 fL (80-100); Monocytes Absolute Auto 600 /uL (0-900); Monocytes Percent Auto 7.4 % (3-14); Neutrophils Absolute Auto 5900 /uL (1500-7000); Neutrophils Percent Auto 69.9 % (50-75); Platelet Count 240 X10^3/uL (150-400); Red Cell Distribution Width 14.7 % (11.6-14.8); White Blood Cell Count 8.4 X10^3/uL (4.5-11.0)
== END 2020-02-19 16:49 | disposition home or self-care (01) ==
PROVIDERS: Emergency Provider Emergency Medicine; PCP Family Medicine
DX: S30.1XXA Contusion of abdominal wall, initial encounter (principal); I10 Essential (primary) hypertension; M54.5 Low back pain
CPT/HCPCS: 36415; 74176; 81003; 84153; 85025; 96372; 99284; J1170

== ENCOUNTER → 2020-03-17 10:27 | Outpatient (CLI) | payer MEDICARE, OTHER, SELFPAY ==
[2020-01-20 11:49] VITALS: BMI 23.1
--- NOTE | 2020-03-17 | DI.CT.S_ITS ---
PROCEDURE: CT CHEST ABD PEL W CON INDICATIONS: Prostate cancer TECHNIQUE: After the administration of oral and intravenous contrast, 5 mm thick sections acquired from the lung apices to the symphysis. 5 mm coronal and sagittal reformats were performed, with additional 7 mm coronal MIP reformats through the lungs. For radiation dose reduction, the following was used: automated exposure control, adjustment of mA and/or kV according to patient size. COMPARISON: [facility], CT, CT KIDNEY URETER BLADDER (KUB), 02/19/2020, 15:07. [facility], CT, CT CHEST ABD PEL W CON, 11/06/2019, 11:29. FINDINGS: Image quality: Excellent. CHEST: Lungs and pleura: 4 mm right lower lobe nodule is unchanged. There is a ground glass nodule anteriorly in the right middle lobe measuring 5 mm (3/220), which is also stable. No acute airspace opacities. No pleural effusions or pneumothorax. Central and peripheral airways appear patent and normal in caliber. Mediastinum: Heart size is normal. No pericardial effusion. No mediastinal or hilar adenopathy by size criteria. Thoracic aorta and central pulmonary arteries are normal in size. Esophagus is normal in caliber. No hiatal hernia. Chest wall: No axillary or supraclavicular adenopathy by size criteria. Thyroid gland is normal. ABDOMEN: Solid organs: Liver is normal in size and enhancement. Gallbladder is partially decompressed and appears unremarkable. Biliary system is non dilated. Pancreas enhances normally. Spleen is normal in size and enhancement. No adrenal nodules. Kidneys demonstrate normal size and enhancement, without hydronephrosis. Peritoneum and bowel: Bowel loops demonstrate normal wall thickness and caliber. No free fluid or air. Nodes and vessels: No retroperitoneal or mesenteric adenopathy by size criteria. Aorta and inferior vena cava are normal in size. Miscellaneous: No ventral hernias. PELVIS: Genitourinary: Bladder wall thickness is normal. The prostate gland is surgically absent. The urinary bladder is partially decompressed. Miscellaneous: There is a simple appearing intramuscular fluid collection involving the right psoas muscle and right obturator muscle which has not changed in size or characteristics compared to prior study. There are no new fluid collections. Bones: No suspicious bony lesions. No vertebral body compression fractures. IMPRESSION: 1. No evidence of new metastatic disease. 2. There are stable intramuscular fluid collections in the right pelvis, likely lymphocele, seroma, or hematomas. 3. Prostatectomy without evidence of recurrent local disease. 4. Stable, nonspecific right middle and lower lobe lung nodules for which on six-month followup is recommended. Dictated by: Ca Montague M.D. on 03/17/2020 at 14:24 Approved by: Ca Montague M.D. on 03/17/2020 at 14:36
--- NOTE | 2020-03-17 | DI.NM.S_ITS ---
PROCEDURE: [place] BONE SCAN WHOLE BODY RADIOPHARMACEUTICAL: 21.3 mCi Tc-99m MDP IV. INDICATIONS: Prostate cancer TECHNIQUE: Delayed whole-body scintigrams were obtained approximately 3-4 hours after intravenous injection of radiotracer. Anterior and posterior views were acquired from vertex to feet. Additional left and right oblique views of the pelvis were obtained. COMPARISON: [facility], [place], [place] BONE SCAN WHOLE BODY, 11/06/2019, 14:20. [facility], CT, CT CHEST ABD PEL W CON, 03/17/2020, 11:40. FINDINGS: There is increased activity in L4-L5 at midline on the posterior view. On the comparison CT, there is enlargement spinous processes of L4 and L5. No sclerotic bone lesion is seen. No lesions are identified in skull, sternum, clavicles, scapulae, ribs, bony pelvis, and visualized shafts of the long bones. There is low level increased uptake in cervical, thoracic and lumbar spine with distribution indistinguishable from degenerative disc and facet disease; early metastasis to spine could be obscured by degenerative changes. There are foci of increased periarticular activity involving shoulders, sternoclavicular joints, hips, knees and feet, compatible with degenerative/arthritic changes. There is urinary contamination in the area of perineum and upper thigh at midline. IMPRESSION: 1. No definitive scintigraphic findings to suggest osseous metastases. 2. 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 Please correlate with serum PSA. If there is high clinical suspicion for metastasis, MRI with and without contrast may be obtained for further evaluation. 3. Urinary contamination is noted in upper thigh at midline. Dictated by: Anish Adame M.D. on 03/17/2020 at 15:25 Approved by: Anish Adame M.D. on 03/17/2020 at 15:42
== END ==
PROVIDERS: PCP Family Medicine; Referring Provider Specialist; Visit Provider Specialist
DX: C61 Malignant neoplasm of prostate (principal); R91.8 Other nonspecific abnormal finding of lung field
CPT/HCPCS: 71260; 74177; 78306; A9503; Q9967

== ENCOUNTER → 2020-04-21 09:28 | Outpatient (CLI) | payer MEDICARE, OTHER, SELFPAY ==
[2020-03-24 10:56] VITALS: BMI 23.1
--- NOTE | 2020-04-21 09:30 | DI.MRI.S_ITS ---
PROCEDURE: MR LUMBAR SPINE WO/W CON INDICATIONS: prostate cancer TECHNIQUE: Noncontrast sagittal T1 spin echo and T2 fast spin echo, sagittal STIR, axial T1 and T2 fast spin echo through the lumbar spine. In cases with scoliosis, additional coronal T2 fast spin echo may be performed. After the administration of contrast, sagittal and axial T1 spin echo with fat saturation through the lumbar spine. COMPARISON: [facility], CT, CT CHEST ABD PEL W CON, 03/17/2020, 11:40. [facility], NM, NM BONE SCAN WHOLE BODY, 03/17/2020, 13:47. FINDINGS: Image quality: Excellent. Alignment and curvature: There is normal bony alignment. Marrow: Reactive endplate changes noted adjacent to the L1-L2, L2-L3, L3-L4, L4-L5 and L5-S1 discs. No acute vertebral body compression fractures. No suspicious marrow enhancement. Spinal cord: Conus medullaris terminates at the L2 level. Visualized spinal cord demonstrates normal signal, without suspicious enhancement. Paraspinous soft tissues: No paravertebral masses or abnormal enhancement. Partially visualized right psoas intramuscular fluid collection which demonstrates relatively thin peripheral postcontrast enhancement is not significantly changed in size or contour compared to prior CT scan obtained March 17, 2020. L1-L2: Loss of disc signal. Mild bilateral facet hypertrophy. Mild narrowing of the central canal. No neural foraminal. No neural compression. L2-L3: Loss of disc signal. Mild, diffuse disc bulge. Mild bilateral facet hypertrophy. Mild narrowing of the central canal. Mild bilateral neural foraminal narrowing. No neural compression. L3-L4: Loss of disc signal and slight loss of disc height. Mild, diffuse disc bulge. Right foraminal disc protrusion. Mild bilateral facet hypertrophy. Mild narrowing of the central canal. Moderate right and mild left neural foraminal narrowing. No neural compression. L4-L5: Loss of disc signal and slight loss of disc height. Mild, diffuse disc bulge. Mild bilateral facet hypertrophy. Mild inflammation noted in the inferior margin of the L4 spinous process and in the L4-L5 interspinous soft tissues compatible with L4-L5 Baastrup's disease. Mild to moderate narrowing of the central canal. Mild to moderate bilateral neural foraminal narrowing. No neural compression. L5-S1: Loss of disc signal. Mild, diffuse disc bulge. Mild to moderate right and mild left facet hypertrophy. No central stenosis. Moderate right and mild left neural foraminal narrowing. No neural compression. IMPRESSION: 1. No evidence of osseous metastatic disease. 2. Inflammatory changes involving the inferior margin of the L4 spinous process in the L4-L5 interspinous soft tissues compatible with Baastrup's disease. 3. Multilevel degenerative disc disease. 4. Multilevel facet arthropathy. 5. No significant central canal narrowing. 6. No significant neural foraminal narrowing. 7. No neural compression. 8. Partially visualized right psoas intramuscular fluid collection not significantly changed in size or contour where visualized compared to March 17, 2020. Dictated by: Carmina Cortez MD, PhD on 04/21/2020 at 14:09 Approved by: Carmina Cortez MD, PhD on 04/21/2020 at 14:43
== END ==
PROVIDERS: PCP Family Medicine; Referring Provider Specialist; Visit Provider Specialist
DX: C61 Malignant neoplasm of prostate (principal); M51.36 Other intervertebral disc degeneration, lumbar region; M51.37 Other intervertebral disc degeneration, lumbosacral region; M47.816 Spondylosis without myelopathy or radiculopathy, lumbar region; M47.817 Spondylosis without myelopathy or radiculopathy, lumbosacral region
CPT/HCPCS: 72158; A9579

== ENCOUNTER 2020-06-23 11:15 | Outpatient (RCR) | payer MEDICARE, OTHER, SELFPAY ==
[2020-01-20 11:49] VITALS: BMI 23.1
[2020-03-24 10:56] VITALS: BMI 23.1
--- NOTE | 2020-04-08 18:49 | PT.OIE ---
Current Diagnoses Unspecified urinary incontinence (04/07/20) Past Medical History (Last Updated 04/07/20 @ 12:40 by Denys Gaitan MD) BCC (basal cell carcinoma) (Acute) Family history of malignant neoplasm of prostate (Acute) Family history of prostate cancer (Acute) Gout (Acute) History of malignant neoplasm of prostate (Acute) HLD (hyperlipidemia) (Acute) HTN (hypertension) (Acute) Prostate cancer (Acute 2020) MICHELLE (stress urinary incontinence), male (Acute) Past Surgical History (Last Reviewed 04/07/20 @ 12:38 by Denys Gaitan MD) Hx of arthroscopy of shoulder (Acute) Hx of bilateral cataract extraction (Acute) Hx of prostate biopsy (Acute 11/19/19) Hx of tonsillectomy (Acute) Status post Mohs surgery (Acute) Visit Care Team Role Provider Type Kash Monte MD Primary Care Provider Non-Staff Specialty: Family Practice Address: [address] [place] [address], [address], [place], [address] Email: Denys Gaitan MD Attending Provider Physician Referring Provider Specialty: Urology Address: [address] [place] [address], [id number] Phone: Email: Physical Therapy Initial Evaluation PT-OP-A Visit Information Start: 04/07/20 10:41 Freq: Status: Active Protocol: Document 04/07/20 10:41 [facility] (Rec: 04/07/20 10:54 [facility] [id number]) Out-Patient Physical Therapy Visit Information Visit Information Visit Type Initial Evaluation Visit Start Time 10:30 Visit Stop Time 11:15 Total Visit Minutes 45 Visit Number 1 Evaluation Information Evaluation Date 04/07/20 PT-OP-B Current Condition Start: 04/07/20 09:42 Freq: Status: Active Protocol: Document 04/07/20 10:41 [facility] (Rec: 04/07/20 10:54 [facility] [id number]) Current Condition History of Current Condition Onset Date January 19 Current Complaints urinary leakage that is constant in nature History of Current Condition 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 He had leakage right away following surgery and he reports he hasn't improved a bit since they pulled the catheter out and it has been 2 months. He reports it was difficult to void prior to surgery. He is experiencing leakage with any standing activities and wakes up wet in the am. He notes that even after his surgery his PSA numbers are 2.6 He reports he sometimes makes it to the bathroom. He still feels the urge to void. If he is down on his knees working it is bad . Treatment Goals Patient/Caregiver Goals Miguel's goals include decreasing urinary incontinence to enable him to continue with the activities he enjoys. Prior Functional Status Baseline Function- ADL's Independent Baseline Function- Mobility Independent Current Functional Impairments (Reported) Functional Limitations- ADL's leaking with bending and lifting activities Functional Limitations- Mobility/Gait leakage with walking that is constant in nature PT-OP-F Manual Assessment Start: 04/07/20 09:42 Freq: Status: Active Protocol: Document 04/07/20 18:12 [facility] (Rec: 04/08/20 18:25 [facility] [id number]) Manual Assessments Soft Tissue Assessment Soft Tissue Mobility Assessment scar tissue tightness noted in the suprapubic region PT-OP-I Pelvic Floor Start: 04/07/20 09:42 Freq: Status: Active Protocol: Document 04/07/20 18:12 [facility] (Rec: 04/08/20 18:25 [facility] [id number]) Pelvic Floor Assessment Urine Pelvic Floor Surgery Yes Urinary Symptoms Urge Sensation,Incomplete Emptying Other Urinary Symptoms pt reports he has constant leakage throughout the day. Leakage is increased with walking and lifting activities . He wakes up wet in the am Leakage Size Large Leakage Cause Cough,Exercise,Lifting,Sneeze Leaks Per Day constant Voiding Frequency every 2 hours Nocturia 5 xms at night Pads Used In 24 Hours 6 Urine Pad Type Depends Contraction Ability Voluntary Contraction Weak Voluntary Relaxation Weak Comments Pelvic Floor Comments external levator ani assessment was performed today as Miguel was not prepared for rectal examination. With external examination there is decreased pelvic floor isolation and the gluteal muscles are over activated. He has difficulty sustaining greater than 3 seconds PT-OP-M Strength Start: 04/07/20 09:42 Freq: Status: Active Protocol: Document 04/07/20 18:12 [facility] (Rec: 04/08/20 18:25 [facility] [id number]) Trunk Strength Trunk Manual Muscle Testing Testing Position Supine Core Stabilization Decreased ability to facilitate the transverse abdominal musculature, needed verbal cuing to activate the Transverse abdominal musculature Hip Strength Hip Manual Muscle Testing Right Abduction 4 Good Left Abduction 4 Good PT-OP-Q Treatments Start: 04/07/20 09:42 Freq: Status: Active Protocol: Document 04/07/20 18:12 [facility] (Rec: 04/08/20 18:25 [facility] [email or web address]) Therapeutic Exercises Supine Exercises 2 Supine Exercise Name quick contractions Reps/Minutes 2 seconds on 2 seconds off x 10 reps 1 Supine Exercise Name pelvic floor long holds Reps/Minutes 10 seconds on 10 seconds relax Sidelying Exercises 1 Sidelying Exercise Name sidelying clam shells Side bilateral Reps/Minutes 3 x 10 reps PT-OP-T Assessment and Plan Start: 04/07/20 09:42 Freq: Status: Active Protocol: Document 04/07/20 18:27 [facility] (Rec: 04/08/20 18:49 [facility] [email or web address]) Physical Therapy Assessment Goals Four Impairment Limited walking distance due to leakage Tool And Production Planner Goal (LTG) Miguel is able to ambulate 30 minutes with minimal to no leakage. LTG Duration 8 weeks Three Impairment Decreased activation of the levator ani with muscle Short Term Goal (STG) Miguel is able to properly engage his pelvic floor muscles without over activation of the gluteal muscles STG Duration 5 weeks Two Impairment poor endurance of the pelvic floor Short Term Goal (STG) Miguel is able to increase endurance holds of the pelvic floor from 3 seconds to 10 seconds in supine STG Duration 5 weeks Tool And Production Planner Goal (LTG) Miguel is able to increase his endurance holds to 10 second hold time in standing LTG Duration 8 weeks One Impairment Urinary stress incontinence Short Term Goal (STG) Miguel is able to decrease pad use per day from 6 pads per day to 2-3 pads per day STG Duration 5 weeks [facility] Goal (LTG) Alex is able to decrease pad use per day to 1-2 or less pads per day with improved control of the pelvic floor LTG Duration 8 weeks Physical Therapy Plan Next Visit Focus/Plan Next Note Type Treatment Note Next Visit Plan Begin EMG biofeedback next visit for endurance training of the pelvic floor musculature.
--- NOTE | 2020-04-08 18:53 | PT.OPPOC ---
Physical, Occupational & Speech Therapy At [facility] Current Diagnoses Unspecified urinary incontinence (04/07/20) Visit Care Team Role Provider Type Kash Monte MD Primary Care Provider Non-Staff Specialty: Family Practice Address: [address] , [address], [place], [address] Email: Denys Gaitan MD Attending Provider Physician Referring Provider Specialty: Urology Address: [address] [place] [address], [address] Phone: Email: Plan Of Care PT-OP-T Assessment and Plan Start: 04/07/20 09:42 Freq: Status: Active Protocol: Document 04/07/20 18:27 [facility] (Rec: 04/08/20 18:49 [facility] [email or web address]) Physical Therapy Assessment Goals Four Impairment Limited walking distance due to leakage Reptile Farmer Goal (LTG) Miguel is able to ambulate 30 minutes with minimal to no leakage. LTG Duration 8 weeks Three Impairment Decreased activation of the levator ani with muscle Short Term Goal (STG) Miguel is able to properly engage his pelvic floor muscles without over activation of the gluteal muscles STG Duration 5 weeks Two Impairment poor endurance of the pelvic floor Short Term Goal (STG) Miguel is able to increase endurance holds of the pelvic floor from 3 seconds to 10 seconds in supine STG Duration 5 weeks Reptile Farmer Goal (LTG) Miguel is able to increase his endurance holds to 10 second hold time in standing LTG Duration 8 weeks One Impairment Urinary stress incontinence Short Term Goal (STG) Miguel is able to decrease pad use per day from 6 pads per day to 2-3 pads per day STG Duration 5 weeks Long-Term Goal (LTG) Alex is able to decrease pad use per day to 1-2 or less pads per day with improved control of the pelvic floor LTG Duration 8 weeks Physical Therapy Plan Next Visit Focus/Plan Next Note Type Treatment Note Next Visit Plan Begin EMG biofeedback next visit for endurance training of the pelvic floor musculature. Plan of Care Dates Plan of Care Start Date 04/07/20 Plan of Care End Date 06/09/20 Electronically Signed by: Shannon Andrade, PT 04/08/20 1442 Please Sign and Return: I have reviewed this Plan of Care and certify that the skilled therapy services above are required to meet the patient?s needs. Physician Signature Date Printed Name and Credentials Clinical Instructor Signature Printed Name and Credentials
--- NOTE | 2020-04-14 14:49 | PT.OTN ---
Current Diagnoses Unspecified urinary incontinence (04/14/20) Physical Therapy Treatment Note PT-OP-A Visit Information Start: 04/07/20 10:41 Freq: Status: Active Protocol: Document 04/14/20 12:31 [facility] (Rec: 04/14/20 12:32 [facility] [id number]) Out-Patient Physical Therapy Visit Information Visit Information Visit Type Treatment Note Visit Start Time 12:00 Visit Stop Time 12:45 Total Visit Minutes 45 Visit Number 2 PT-OP-B Current Condition Start: 04/07/20 09:42 Freq: Status: Active Protocol: Document 04/07/20 10:41 [facility] (Rec: 04/07/20 10:54 [facility] [id number]) Current Condition History of Current Condition Onset Date January 19 Current Complaints urinary leakage that is constant in nature History of Current Condition 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 He had leakage right away following surgery and he reports he hasn't improved a bit since they pulled the catherter out and it has been 2 months. He reports it was difficult to void prior to surgery. He is experincing leakage with any standing activities and wakes up wet in the am. He notes that even after his surgery his PSA numbers are 2.6 He reports he sometimes makes it to the bathroom. He still feels the urge to void. If he is down on his knees working it is bad . Treatment Goals Patient/Caregiver Goals Miguel's goals include decreasing urinary incontinence to enable him to continue with the activities he enjoys. Prior Functional Status Baseline Function- ADL's Independent Baseline Function- Mobility Independent Current Functional Impairments (Reported) Functional Limitations- ADL's leaking with bending and lifting activities Functional Limitations- Mobility/Gait leakage with walking that is constant in nature PT-OP-C Subjective Start: 04/07/20 09:42 Freq: Status: Active Protocol: Document 04/14/20 12:11 [facility] (Rec: 04/14/20 12:31 [facility] [id number]) OP-PT Subjective Patient Comments Patient Comments pt reports as long as he is sitting he is fine, but during the day he is experiencing constant leakage. Reports it is hard to empty his bladder as everything is leakingout during the day. 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 Patient Reported Progress Same PT-OP-F Manual Assessment Start: 04/07/20 09:42 Freq: Status: Active Protocol: Document 04/07/20 18:12 [facility] (Rec: 04/08/20 18:25 [facility] [id number]) Manual Assessments Soft Tissue Assessment Soft Tissue Mobility Assessment scar tissue tightness noted in the suprapubic region PT-OP-I Pelvic Floor Start: 04/07/20 09:42 Freq: Status: Active Protocol: Document 04/07/20 18:12 [facility] (Rec: 04/08/20 18:25 [facility] [email or web address]) Pelvic Floor Assessment Urine Pelvic Floor Surgery Yes Urinary Symptoms Urge Sensation,Incomplete Emptying Other Urinary Symptoms pt reports he has constant leakage throughout the day. Leakage is increased with walking and lifting activities . He wakes up wet in the am Leakage Size Large Leakage Cause Cough,Exercise,Lifting,Sneeze Leaks Per Day constant Voiding Frequency every 2 hours Nocturia 5 xms at night Pads Used In 24 Hours 6 Urine Pad Type Depends Contraction Ability Voluntary Contraction Weak Voluntary Relaxation Weak Comments Pelvic Floor Comments external levator ani assessment was performed today as Miguel was not prepared for rectal examination. With external examination there is decreased pelvic floor isolation and the gluteal muscles are overactivated. He has difficulty sustaining greater than 3 seconds PT-OP-M Strength Start: 04/07/20 09:42 Freq: Status: Active Protocol: Document 04/07/20 18:12 [facility] (Rec: 04/08/20 18:25 [facility] [email or web address]) Trunk Strength Trunk Manual Muscle Testing Testing Position Supine Core Stabilization Decreased ability to facilitate the transverse abdominal musculature, needed verbal cuing to activate the Transverse abdominal musculature Hip Strength Hip Manual Muscle Testing Right Abduction 4 Good Left Abduction 4 Good PT-OP-Q Treatments Start: 04/07/20 09:42 Freq: Status: Active Protocol: Document 04/14/20 14:44 [facility] (Rec: 04/14/20 14:49 [facility] [email or web address]) Therapeutic Exercises Supine Exercises 2 Supine Exercise Name quick contractions Reps/Minutes 2 seconds on 2 seconds off x 10 reps 1 Supine Exercise Name pelvic floor long holds Reps/Minutes 10 seconds on 10 seconds relax Sidelying Exercises 1 Sidelying Exercise Name sidelying clam shells Side bilateral Reps/Minutes 3 x 10 reps Neuro Re-Education Treatment Other Activities NMES Details NMES for the pelvci floor with rectal sensor Reps/Duration 10 min Comments NMES was started today for improved sensation of pelvic floor contractions. Miguel could feel the NMES at level 4 . He was placed on stimulation for 10 minutes with 10 seconds on 10 seconds off. He realized how much he was using his gluteals to contract his pelvic floor EMG BIOFEEDBACK Details EMG biofeedback Comments biofeedback was initiated today to assess pts endurance for pelvic floor long holds. Endurance is very limited and pt was able to visualize how the pelvic floor muscles relax quickly following a pelvic floor contraction PT-OP-T Assessment and Plan Start: 04/07/20 09:42 Freq: Status: Active Protocol: Document 04/14/20 14:44 [facility] (Rec: 04/14/20 14:49 [facility] [email or web address]) Physical Therapy Assessment Assessment Summary Assessment Discussed regular voiding intervals today with Miguel. He felt that the stimulation helped him today to realize how much he was using his gluteal muscles to contract his pelvic floor. He may benefit from a home rental of the NMES Physical Therapy Plan Frequency and Duration Frequency of Treatment 1x/Week Duration of Treatment 8 Plan of Care Start Date 04/07/20 Plan of Care End Date 06/09/20
--- NOTE | 2020-04-21 12:06 | PT.OTN ---
Current Diagnoses Unspecified urinary incontinence (04/21/20) Physical Therapy Treatment Note PT-OP-A Visit Information Start: 04/07/20 10:41 Freq: Status: Active Protocol: Document 04/21/20 11:49 [facility] (Rec: 04/21/20 12:02 [facility] [id number]) Out-Patient Physical Therapy Visit Information Visit Information Visit Type Treatment Note Visit Start Time 11:15 Visit Stop Time 12:00 Total Visit Minutes 45 Visit Number 3 Evaluation Information Evaluation Date 04/07/20 PT-OP-B Current Condition Start: 04/07/20 09:42 Freq: Status: Active Protocol: Document 04/07/20 10:41 [facility] (Rec: 04/07/20 10:54 [facility] [id number]) Current Condition History of Current Condition Onset Date January 19 Current Complaints urinary leakage that is constant in nature History of Current Condition 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 He had leakage right away following surgery and he reports he hasn't improved a bit since they pulled the catherter out and it has been 2 months. He reports it was difficult to void prior to surgery. He is experincing leakage with any standing activities and wakes up wet in the am. He notes that even after his surgery his PSA numbers are 2.6 He reports he sometimes makes it to the bathroom. He still feels the urge to void. If he is down on his knees working it is bad . Treatment Goals Patient/Caregiver Goals Miguel's goals include decreasing urinary incontinence to enable him to continue with the activities he enjoys. Prior Functional Status Baseline Function- ADL's Independent Baseline Function- Mobility Independent Current Functional Impairments (Reported) Functional Limitations- ADL's leaking with bending and lifting activities Functional Limitations- Mobility/Gait leakage with walking that is constant in nature PT-OP-C Subjective Start: 04/07/20 09:42 Freq: Status: Active Protocol: Document 04/21/20 11:49 [facility] (Rec: 04/21/20 12:02 [facility] [id number]) OP-PT Subjective Patient Comments Patient Comments pt reports he had his best moring this am, woke up at 1: 30 and made it to the bathroom and then again at 5:00 am. Notes he was pretty dry. Alex reports there has been no change in his symptoms when he is standing and moving. Sitting has been okay. PT-OP-F Manual Assessment Start: 04/07/20 09:42 Freq: Status: Active Protocol: Document 04/07/20 18:12 [facility] (Rec: 04/08/20 18:25 [facility] [id number]) Manual Assessments Soft Tissue Assessment Soft Tissue Mobility Assessment scar tissue tightness noted in the suprapubic region PT-OP-I Pelvic Floor Start: 04/07/20 09:42 Freq: Status: Active Protocol: Document 04/07/20 18:12 [facility] (Rec: 04/08/20 18:25 [facility] [id number]) Pelvic Floor Assessment Urine Pelvic Floor Surgery Yes Urinary Symptoms Urge Sensation,Incomplete Emptying Other Urinary Symptoms pt reports he has constant leakage throughout the day. Leakage is increased with walking and lifting activities . He wakes up wet in the am Leakage Size Large Leakage Cause Cough,Exercise,Lifting,Sneeze Leaks Per Day constant Voiding Frequency every 2 hours Nocturia 5 xms at night Pads Used In 24 Hours 6 Urine Pad Type Depends Contraction Ability Voluntary Contraction Weak Voluntary Relaxation Weak Comments Pelvic Floor Comments external levator ani assessment was performed today as Miguel was not prepared for rectal examination. With external examination there is decreased pelvic floor isolation and the gluteal muscles are overactivated. He has difficulty sustaining greater than 3 seconds PT-OP-M Strength Start: 04/07/20 09:42 Freq: Status: Active Protocol: Document 04/07/20 18:12 [facility] (Rec: 04/08/20 18:25 [facility] [id number]) Trunk Strength Trunk Manual Muscle Testing Testing Position Supine Core Stabilization Decreased ability to facilitate the transverse abdominal musculature, needed verbal cuing to activate the Transverse abdominal musculature Hip Strength Hip Manual Muscle Testing Right Abduction 4 Good Left Abduction 4 Good PT-OP-Q Treatments Start: 04/07/20 09:42 Freq: Status: Active Protocol: Document 04/21/20 11:49 [facility] (Rec: 04/21/20 12:02 [facility] [id number]) Therapeutic Exercises Supine Exercises 3 Supine Exercise Name templates for eccentric control and coordination. With EMG biofeedback Comments pt tolerated this well and I kept max height of 5 uv 2 Supine Exercise Name quick contractions Reps/Minutes 2 seconds on 2 seconds off x 10 reps 1 Supine Exercise Name pelvic floor long holds Reps/Minutes 10 seconds on 10 seconds relax Sidelying Exercises 1 Sidelying Exercise Name sidelying clam shells Side bilateral Reps/Minutes 3 x 10 reps Neuro Re-Education Treatment Other Activities NMES Details NMES for the pelvci floor with rectal sensor Reps/Duration 10 min Comments NMES was done today for improved sensation of pelvic floor contractions. Miguel could feel the NMES at level 4 . He was placed on stimulation for 10 minutes with 10 seconds on 10 EMG BIOFEEDBACK Details EMG biofeedback Comments biofeedback was initiated today to assess pts endurance for pelvic floor long holds. Endurance is very limited and pt was able to visualize how the pelvic floor muscles relax quickly following a pelvic floor contraction PT-OP-T Assessment and Plan Start: 04/07/20 09:42 Freq: Status: Active Protocol: Document 04/21/20 11:49 [facility] (Rec: 04/21/20 12:02 [facility] [id number]) Physical Therapy Assessment Assessment Summary Assessment improved resting tone of the pelvic floor today, able to relax to baseline after a few contractions. Pt is wanting to do the stimulation in his visits but not for at home rental. Endurance is still the greatest challenge for him . Physical Therapy Plan Frequency and Duration Frequency of Treatment 1x/Week Duration of Treatment 8 Plan of Care Start Date 04/07/20 Plan of Care End Date 06/09/20
--- NOTE | 2020-05-05 15:13 | PT.OTN ---
Current Diagnoses Unspecified urinary incontinence (05/05/20) Physical Therapy Treatment Note PT-OP-A Visit Information Start: 04/07/20 10:41 Freq: Status: Active Protocol: Document 05/05/20 15:06 [facility] (Rec: 05/05/20 15:13 [facility] [id number]) Out-Patient Physical Therapy Visit Information Visit Information Visit Type Treatment Note Visit Start Time 11:25 Visit Stop Time 12:10 Total Visit Minutes 45 Visit Number 4 PT-OP-B Current Condition Start: 04/07/20 09:42 Freq: Status: Active Protocol: Document 04/07/20 10:41 [facility] (Rec: 04/07/20 10:54 [facility] [id number]) Current Condition History of Current Condition Onset Date January 19 Current Complaints urinary leakage that is constant in nature History of Current Condition 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 He had leakage right away following surgery and he reports he hasn't improved a bit since they pulled the catherter out and it has been 2 months. He reports it was difficult to void prior to surgery. He is experincing leakage with any standing activities and wakes up wet in the am. He notes that even after his surgery his PSA numbers are 2.6 He reports he sometimes makes it to the bathroom. He still feels the urge to void. If he is down on his knees working it is bad . Treatment Goals Patient/Caregiver Goals Miguel's goals include decreasing urinary incontinence to enable him to continue with the activities he enjoys. Prior Functional Status Baseline Function- ADL's Independent Baseline Function- Mobility Independent Current Functional Impairments (Reported) Functional Limitations- ADL's leaking with bending and lifting activities Functional Limitations- Mobility/Gait leakage with walking that is constant in nature PT-OP-C Subjective Start: 04/07/20 09:42 Freq: Status: Active Protocol: Document 05/05/20 15:06 [facility] (Rec: 05/05/20 15:13 [facility] [id number]) OP-PT Subjective Patient Comments Patient Comments pt reports he is doing better with staying dry at night and if he is siting he can go longer in the day without leaks. He is still having leaks with walking. He can tell his endurance is improving. PT-OP-F Manual Assessment Start: 04/07/20 09:42 Freq: Status: Active Protocol: Document 04/07/20 18:12 [facility] (Rec: 04/08/20 18:25 [facility] [id number]) Manual Assessments Soft Tissue Assessment Soft Tissue Mobility Assessment scar tissue tightness noted in the suprapubic region PT-OP-I Pelvic Floor Start: 04/07/20 09:42 Freq: Status: Active Protocol: Document 04/07/20 18:12 [facility] (Rec: 04/08/20 18:25 [facility] [id number]) Pelvic Floor Assessment Urine Pelvic Floor Surgery Yes Urinary Symptoms Urge Sensation,Incomplete Emptying Other Urinary Symptoms pt reports he has constant leakage throughout the day. Leakage is increased with walking and lifting activities . He wakes up wet in the am Leakage Size Large Leakage Cause Cough,Exercise,Lifting,Sneeze Leaks Per Day constant Voiding Frequency every 2 hours Nocturia 5 xms at night Pads Used In 24 Hours 6 Urine Pad Type Depends Contraction Ability Voluntary Contraction Weak Voluntary Relaxation Weak Comments Pelvic Floor Comments external levator ani assessment was performed today as Miguel was not prepared for rectal examination. With external examination there is decreased pelvic floor isolation and the gluteal muscles are over activated. He has difficulty sustaining greater than 3 seconds PT-OP-M Strength Start: 04/07/20 09:42 Freq: Status: Active Protocol: Document 04/07/20 18:12 [facility] (Rec: 04/08/20 18:25 [facility] [id number]) Trunk Strength Trunk Manual Muscle Testing Testing Position Supine Core Stabilization Decreased ability to facilitate the transverse abdominal musculature, needed verbal cuing to activate the Transverse abdominal musculature Hip Strength Hip Manual Muscle Testing Right Abduction 4 Good Left Abduction 4 Good PT-OP-Q Treatments Start: 04/07/20 09:42 Freq: Status: Active Protocol: Document 05/05/20 15:06 [facility] (Rec: 05/05/20 15:13 [facility] [id number]) Therapeutic Exercises Supine Exercises 3 Supine Exercise Name templates for eccentric control and coordination. With EMG biofeedback Comments pt tolerated this well and I kept max height of 5 uv 2 Supine Exercise Name quick contractions Reps/Minutes 2 seconds on 2 seconds off x 10 reps 1 Supine Exercise Name pelvic floor long holds Reps/Minutes 10 seconds on 10 seconds relax Neuro Re-Education Treatment Other Activities NMES Details NMES for the pelvic floor with rectal sensor Reps/Duration 10 min Comments NMES was done today for improved sensation of pelvic floor contractions. Miguel could feel the NMES at level 4 . He was placed on stimulation for 10 minutes with 10 seconds on 10 PT-OP-T Assessment and Plan Start: 04/07/20 09:42 Freq: Status: Active Protocol: Document 05/05/20 15:06 [facility] (Rec: 05/05/20 15:13 [facility] [id number]) Physical Therapy Assessment Assessment Summary Assessment improved average contraction of the pelvic floor today from 17.6 uv average on 04/14/20 to 32.7 uv average today. We will start working on afshan the pelvic floor in upright positions next visit Physical Therapy Plan Frequency and Duration Frequency of Treatment 1x/Week Duration of Treatment 8 Plan of Care Start Date 04/07/20 Plan of Care End Date 06/09/20 Next Visit Focus/Plan Next Note Type Treatment Note Next Visit Plan Begin working on standing pelvic floor contractions next visit
--- NOTE | 2020-05-12 15:04 | PT.OTN ---
Current Diagnoses Unspecified urinary incontinence (05/12/20) Physical Therapy Treatment Note PT-OP-A Visit Information Start: 04/07/20 10:41 Freq: Status: Active Protocol: Document 05/12/20 10:46 [facility] (Rec: 05/12/20 10:47 [facility] [id number]) Out-Patient Physical Therapy Visit Information Visit Information Visit Type Treatment Note Visit Start Time 10:40 Visit Stop Time 11:20 Total Visit Minutes 40 Visit Number 5 Evaluation Information Evaluation Date 04/07/20 PT-OP-B Current Condition Start: 04/07/20 09:42 Freq: Status: Active Protocol: Document 04/07/20 10:41 [facility] (Rec: 04/07/20 10:54 [facility] [id number]) Current Condition History of Current Condition Onset Date January 19 Current Complaints urinary leakage that is constant in nature History of Current Condition 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 He had leakage right away following surgery and he reports he hasn't improved a bit since they pulled the catherter out and it has been 2 months. He reports it was difficult to void prior to surgery. He is experincing leakage with any standing activities and wakes up wet in the am. He notes that even after his surgery his PSA numbers are 2.6 He reports he sometimes makes it to the bathroom. He still feels the urge to void. If he is down on his knees working it is bad . Treatment Goals Patient/Caregiver Goals Miguel's goals include decreasing urinary incontinence to enable him to continue with the activities he enjoys. Prior Functional Status Baseline Function- ADL's Independent Baseline Function- Mobility Independent Current Functional Impairments (Reported) Functional Limitations- ADL's leaking with bending and lifting activities Functional Limitations- Mobility/Gait leakage with walking that is constant in nature PT-OP-C Subjective Start: 04/07/20 09:42 Freq: Status: Active Protocol: Document 05/12/20 14:55 [facility] (Rec: 05/12/20 15:03 [facility] [id number]) OP-PT Subjective Patient Comments Patient Comments Pt reports he is doing well at night and with sitting still but he is still noting leaking during the day. He reports he does feel more strength from his pelvic floor PT-OP-F Manual Assessment Start: 04/07/20 09:42 Freq: Status: Active Protocol: Document 04/07/20 18:12 [facility] (Rec: 04/08/20 18:25 [facility] [id number]) Manual Assessments Soft Tissue Assessment Soft Tissue Mobility Assessment scar tissue tightness noted in the suprapubic region PT-OP-I Pelvic Floor Start: 04/07/20 09:42 Freq: Status: Active Protocol: Document 04/07/20 18:12 [facility] (Rec: 04/08/20 18:25 [facility] [id number]) Pelvic Floor Assessment Urine Pelvic Floor Surgery Yes Urinary Symptoms Urge Sensation,Incomplete Emptying Other Urinary Symptoms pt reports he has constant leakage throughout the day. Leakage is increased with walking and lifting activities . He wakes up wet in the am Leakage Size Large Leakage Cause Cough,Exercise,Lifting,Sneeze Leaks Per Day constant Voiding Frequency every 2 hours Nocturia 5 xms at night Pads Used In 24 Hours 6 Urine Pad Type Depends Contraction Ability Voluntary Contraction Weak Voluntary Relaxation Weak Comments Pelvic Floor Comments external levator ani assessment was performed today as Miguel was not prepared for rectal examination. With external examination there is decreased pelvic floor isolation and the gluteal muscles are overactivated. He has difficulty sustaining greater than 3 seconds PT-OP-M Strength Start: 04/07/20 09:42 Freq: Status: Active Protocol: Document 04/07/20 18:12 [facility] (Rec: 04/08/20 18:25 [facility] [id number]) Trunk Strength Trunk Manual Muscle Testing Testing Position Supine Core Stabilization Decreased ability to facilitate the transverse abdominal musculature, needed verbal cuing to activate the Transverse abdominal musculature Hip Strength Hip Manual Muscle Testing Right Abduction 4 Good Left Abduction 4 Good PT-OP-Q Treatments Start: 04/07/20 09:42 Freq: Status: Active Protocol: Document 05/12/20 14:55 [facility] (Rec: 05/12/20 15:03 [facility] [id number]) Therapeutic Exercises Supine Exercises 3 Supine Exercise Name templates for eccentric control and coordination. With EMG biofeedback Comments pt tolerated this well and I kept max height of 5 uv 2 Supine Exercise Name quick contractions Reps/Minutes 2 seconds on 2 seconds off x 10 reps 1 Supine Exercise Name pelvic floor long holds Reps/Minutes 10 seconds on 10 seconds relax Neuro Re-Education Treatment Other Activities NMES Details NMES for the pelvci floor with rectal sensor Reps/Duration 10 min Comments NMES was done today for improved sensation of pelvic floor contractions. Miguel could feel the NMES at level 4 . He was placed on stimulation for 10 minutes with 10 seconds on 10 EMG BIOFEEDBACK Details EMG biofeedback Comments biofeedback was used today pts endurance for pelvic floor long holds. Endurance is slowly improving but Miguel is still not fully able to sustain a contraction for 10 seconds. PT-OP-T Assessment and Plan Start: 04/07/20 09:42 Freq: Status: Active Protocol: Document 05/12/20 14:55 [facility] (Rec: 05/12/20 15:03 [facility] [id number]) Physical Therapy Assessment Assessment Summary Assessment Miguel is frustrated today that he is still leaking in standing. We discussed that it has only been a month since he started PT and I talked to him about the length of time it takes to support the urethral sphincter after surgery. He would like to work on his exercises at home for a few weeks then recheck back in with PT. I have recommended a home NMES unit for him for improved muscle recruitment of the pelvic floor but he doesn't feel he would do it at home. For now he will keep up with his exercises and recheck back in a few weeks. Physical Therapy Plan Frequency and Duration Frequency of Treatment 1x/Week Duration of Treatment 8 Plan of Care Start Date 04/07/20 Plan of Care End Date 06/09/20 Therapeutic Interventions Therapeutic Interventions Home Exercise Program,Manual Therapy,Patient/Caregiver Education,Self-Care/Home Management,Soft Tissue Mobilization,Therapeutic Exercises Modalities Biofeedback Other Therapeutic Interventions NMES for the pelvic floor Next Visit Focus/Plan Next Note Type Progress Note Next Visit Plan Work on standing pelvic floor contractions and squats with pelvic floor activation
--- NOTE | 2020-06-24 09:12 | PT.OTN ---
Current Diagnoses Unspecified urinary incontinence (06/23/20) Physical Therapy Treatment Note PT-OP-A Visit Information Start: 04/07/20 10:41 Freq: Status: Active Protocol: Document 06/23/20 11:18 [facility] (Rec: 06/23/20 11:23 [facility] [id number]) Out-Patient Physical Therapy Visit Information Visit Information Visit Type Treatment Note Visit Start Time 11:15 Visit Stop Time 12:00 Total Visit Minutes 45 Visit Number 6 PT-OP-B Current Condition Start: 04/07/20 09:42 Freq: Status: Active Protocol: Document 04/07/20 10:41 [facility] (Rec: 04/07/20 10:54 [facility] [id number]) Current Condition History of Current Condition Onset Date January 19 Current Complaints urinary leakage that is constant in nature History of Current Condition 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 He had leakage right away following surgery and he reports he hasn't improved a bit since they pulled the catheter out and it has been 2 months. He reports it was difficult to void prior to surgery. He is experiencing leakage with any standing activities and wakes up wet in the am. He notes that even after his surgery his PSA numbers are 2.6 He reports he sometimes makes it to the bathroom. He still feels the urge to void. If he is down on his knees working it is bad . Treatment Goals Patient/Caregiver Goals Miguel's goals include decreasing urinary incontinence to enable him to continue with the activities he enjoys. Prior Functional Status Baseline Function- ADL's Independent Baseline Function- Mobility Independent Current Functional Impairments (Reported) Functional Limitations- ADL's leaking with bending and lifting activities Functional Limitations- Mobility/Gait leakage with walking that is constant in nature PT-OP-C Subjective Start: 04/07/20 09:42 Freq: Status: Active Protocol: Document 06/23/20 11:18 [facility] (Rec: 06/23/20 11:23 [facility] [id number]) OP-PT Subjective Patient Comments Patient Comments Some days have been better than others, last night he got up only 2 times. He reports when he is up moving around it is a constant stream. In a 24 hour period he is using 4 pads. He is helping a friend build a tree house and he has constant leakage. It does feel that he is able to hold the pelvic floor contractions a lot longer. PT-OP-F Manual Assessment Start: 04/07/20 09:42 Freq: Status: Active Protocol: Document 04/07/20 18:12 [facility] (Rec: 04/08/20 18:25 [facility] [id number]) Manual Assessments Soft Tissue Assessment Soft Tissue Mobility Assessment scar tissue tightness noted in the suprapubic region PT-OP-I Pelvic Floor Start: 04/07/20 09:42 Freq: Status: Active Protocol: Document 06/23/20 11:15 [facility] (Rec: 06/24/20 09:12 [facility] [id number]) Pelvic Floor Assessment Urine Pelvic Floor Surgery Yes Urinary Symptoms Urge Sensation Other Urinary Symptoms pt is waking up dry, if he sits he is okay. Leakage still occurs with lifting activities. Walking is a little better but bending and lifting still increase symptoms Leakage Size Large Leakage Cause Exercise,Lifting Leaks Per Day during the day with activity Voiding Frequency every 2 hours Nocturia 3-4 xms per night Pads Used In 24 Hours 4 Contraction Ability Voluntary Contraction Moderate Voluntary Relaxation Moderate Comments Pelvic Floor Comments Alex is able to sustain a pelvic floor contraction now for 10 seconds with EMG biofeedback. He is able to isolate his pelvic floor and is able to feel the contraction. He wishes to work on his exercises independently at this time. PT-OP-M Strength Start: 04/07/20 09:42 Freq: Status: Active Protocol: Document 04/07/20 18:12 [facility] (Rec: 04/08/20 18:25 [facility] [id number]) Trunk Strength Trunk Manual Muscle Testing Testing Position Supine Core Stabilization Decreased ability to facilitate the transverse abdominal musculature, needed verbal cuing to activate the Transverse abdominal musculature Hip Strength Hip Manual Muscle Testing Right Abduction 4 Good Left Abduction 4 Good PT-OP-Q Treatments Start: 04/07/20 09:42 Freq: Status: Active Protocol: Document 06/23/20 11:50 [facility] (Rec: 06/23/20 12:01 [facility] [id number]) Therapeutic Exercises Supine Exercises 3 Supine Exercise Name templates for eccentric control and coordination. With EMG biofeedback Comments pt tolerated this well and I kept max height of 5 uv 2 Supine Exercise Name quick contractions Reps/Minutes 2 seconds on 2 seconds off x 10 reps 1 Supine Exercise Name pelvic floor long holds Reps/Minutes 10 seconds on 10 seconds relax Neuro Re-Education Treatment Other Activities NMES Details NMES for the pelvic floor with rectal sensor Reps/Duration 10 min Comments NMES was done today for improved sensation of pelvic floor contractions. Miguel could feel the NMES at level 3 . He was placed on stimulation for 10 minutes with 10 seconds on 10 EMG BIOFEEDBACK Details EMG biofeedback Comments biofeedback was used today pts endurance for pelvic floor long holds. Endurance is improving and he is able to hold for his 10 second holds now PT-OP-T Assessment and Plan Start: 04/07/20 09:42 Freq: Status: Active Protocol: Document 06/23/20 11:50 [facility] (Rec: 06/23/20 11:23 [facility] [id number]) Physical Therapy Assessment Goals Four Impairment Limited walking distance due to leakage [employer] Goal (LTG) Miguel is able to ambulate 30 minutes with minimal to no leakage. LTG Duration 8 weeks Three Impairment Decreased activation of the levator ani with muscle Short Term Goal (STG) Miguel is able to properly engage his pelvic floor muscles without over activation of the gluteal muscles STG Duration 5 weeks Two Impairment poor endurance of the pelvic floor Short Term Goal (STG) Miguel is able to increase endurance holds of the pelvic floor from 3 seconds to 10 seconds in supine STG Duration 5 weeks Intermediate Goal (LTG) Miguel is able to increase his endurance holds to 10 second hold time in standing LTG Duration 8 weeks One Impairment Urinary stress incontinence Short Term Goal (STG) Miguel is able to decrease pad use per day from 6 pads per day to 2-3 pads per day STG Duration 5 weeks [employer] Goal (LTG) Alex is able to decrease pad use per day to 1-2 or less pads per day with improved control of the pelvic floor LTG Duration 8 weeks
--- NOTE | 2020-06-24 09:17 | PT.OPDS ---
Current Diagnoses Unspecified urinary incontinence (06/23/20) Visit Care Team Role Provider Type Kash Monte MD Primary Care Provider Non-Staff Specialty: Family Practice Address: [address], [address], [place], [address] Email: Denys Gaitan MD Attending Provider Physician Referring Provider Specialty: Urology Address: [address] [place] [address], [place], [address] Phone: Email: Visit Number Visit Number 6 Discharge Summary PT-OP-B Current Condition Start: 04/07/20 09:42 Freq: Status: Active Protocol: Document 04/07/20 10:41 [facility] (Rec: 04/07/20 10:54 [facility] [id number]) Current Condition History of Current Condition Onset Date January 19 Current Complaints urinary leakage that is constant in nature History of Current Condition 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 He had leakage right away following surgery and he reports he hasn't improved a bit since they pulled the catherter out and it has been 2 months. He reports it was difficult to void prior to surgery. He is experincing leakage with any standing activities and wakes up wet in the am. He notes that even after his surgery his PSA numbers are 2.6 He reports he sometimes makes it to the bathroom. He still feels the urge to void. If he is down on his knees working it is bad . Treatment Goals Patient/Caregiver Goals Miguel's goals include decreasing urinary incontinence to enable him to continue with the activities he enjoys. Prior Functional Status Baseline Function- ADL's Independent Baseline Function- Mobility Independent Current Functional Impairments (Reported) Functional Limitations- ADL's leaking with bending and lifting activities Functional Limitations- Mobility/Gait leakage with walking that is constant in nature PT-OP-C Subjective Start: 04/07/20 09:42 Freq: Status: Active Protocol: Document 06/23/20 11:18 [facility] (Rec: 06/23/20 11:23 [facility] [id number]) OP-PT Subjective Patient Comments Patient Comments Some days have been better than others, last night he got up only 2 times. He reports when he is up moving around it is a constant stream. In a 24 hour period he is using 4 pads. He is helping a friend build a tree house and he has constant leakage. It does feel that he is able to hold the pelvic floor contractions a lot longer. PT-OP-F Manual Assessment Start: 04/07/20 09:42 Freq: Status: Active Protocol: Document 04/07/20 18:12 [facility] (Rec: 04/08/20 18:25 [facility] [id number]) Manual Assessments Soft Tissue Assessment Soft Tissue Mobility Assessment scar tissue tightness noted in the suprapubic region PT-OP-I Pelvic Floor Start: 04/07/20 09:42 Freq: Status: Active Protocol: Document 06/23/20 11:15 [facility] (Rec: 06/24/20 09:12 [facility] [id number]) Pelvic Floor Assessment Urine Pelvic Floor Surgery Yes Urinary Symptoms Urge Sensation Other Urinary Symptoms pt is waking up dry, if he sits he is okay. Leakage still occurs with lifting activities. Walking is a little better but bending and lifting still increase symptoms Leakage Size Large Leakage Cause Exercise,Lifting Leaks Per Day during the day with activity Voiding Frequency every 2 hours Nocturia 3-4 xms per night Pads Used In 24 Hours 4 Contraction Ability Voluntary Contraction Moderate Voluntary Relaxation Moderate Comments Pelvic Floor Comments Alex is able to sustain a pelvic floor contraction now for 10 seconds with EMG biofeedback. He is able to isolate his pelvic floor and is able to feel the contraction. He wishes to work on his exercises independently at this time. PT-OP-M Strength Start: 04/07/20 09:42 Freq: Status: Active Protocol: Document 04/07/20 18:12 [facility] (Rec: 04/08/20 18:25 [facility] [id number]) Trunk Strength Trunk Manual Muscle Testing Testing Position Supine Core Stabilization Decreased ability to facilitate the transverse abdominal musculature, needed verbal cuing to activate the Transverse abdominal musculature Hip Strength Hip Manual Muscle Testing Right Abduction 4 Good Left Abduction 4 Good PT-OP-T Assessment and Plan Start: 04/07/20 09:42 Freq: Status: Active Protocol: Document 06/23/20 11:18 [facility] (Rec: 06/23/20 12:01 [facility] [id number]) Physical Therapy Assessment Goals Four Impairment Limited walking distance due to leakage [employer] Goal (LTG) Miguel is able to ambulate 30 minutes with minimal to no leakage. ALEX CONTINUES TO TO NOTE LEAKING WITH UPRIGHT ACTIVITIES. ESPECIALLY WITH BENDING AND KNEELING. HE FEELS LIKE WALKING HE IS NOT NOTICING MUCH OF THE LEAKAGE. LTG Duration 8 weeks Three Impairment Decreased activation of the levator ani with muscle Short Term Goal (STG) Miguel is able to properly engage his pelvic floor muscles without overactivation of the gluteal muscles GOAL MET STG Duration 5 weeks Two Impairment poor endurance of the pelvic floor Short Term Goal (STG) Miguel is able to increase endurance holds of the pelvic floor from 3 seconds to 10 seconds in supine GOAL MET STG Duration 5 weeks [facility] Goal (LTG) Miguel is able to increase his endurance holds to 10 second hold time in standing GOOD PROGRESS AND ALEX IS ABLE TO FEEL HIS PELVIC FLOOR CONTRACTIONS NOW LTG Duration 8 weeks One Impairment Urinary stress incontinence Short Term Goal (STG) Miguel is able to decrease pad use per day from 6 pads per day to 2-3 pads per day SOME progress as Alex is using 4 pads per day now STG Duration 5 weeks [employer] Goal (LTG) Alex is able to decrease pad use per day to 1-2 or less pads per day with improved control of the pelvic floor GOAL NOT YET MET LTG Duration 8 weeks Assessment Summary Assessment Miguel continues to be frustrated with his symptoms. Although he is dry for the most part in the am he is having to wake to void 3-4 times per night. He is able to hold and make it to the toilet when waking in the middle of the night. With activity though during the day he is not able to control the leakage. He has some days that are better than others but it depends on his activity level. At this point he feels independent with his home exercise program Physical Therapy Plan Frequency and Duration Frequency of Treatment 1x/Week Duration of Treatment 8 Plan of Care Start Date 04/07/20 Plan of Care End Date 06/09/20 Discharge Physical Therapy Discharge Reasons Patient Request Discharge Comments Alex reports he is feeling independent with his home exercise program and wishes to continue his exercises independently
== END 2020-07-02 10:09 ==
LOC: PHYS 11:15
PROVIDERS: PCP Family Medicine; Referring Provider Specialist; Visit Provider Specialist
DX: R32 Unspecified urinary incontinence (principal)
CPT/HCPCS: 97110; 97112; 97161; 97530

== ENCOUNTER → 2020-07-27 12:33 | Outpatient (CLI) | payer MEDICARE, OTHER, SELFPAY ==
[2020-03-24 10:56] VITALS: BMI 23.1
--- NOTE | 2020-07-27 12:37 | DI.CT.S_ITS ---
PROCEDURE: CT CHEST W CON INDICATIONS: prostate cancer TECHNIQUE: After the administration of intravenous contrast, 5 mm thick sections acquired from the pulmonary apices to the posterior costophrenic angles. 1 mm axial lung, 5 mm thick coronal and sagittal reformats and 7 mm axial MIP were acquired. For radiation dose reduction, the following was used: automated exposure control, adjustment of mA and/or kV according to patient size. COMPARISON: [place], [place], [place] BONE SCAN WHOLE BODY, 03/17/2020, 13:47. FINDINGS: Image quality: Excellent. Lungs and pleura: No acute air space opacities. No pleural effusions or pneumothorax. Central and peripheral airways are patent and normal in caliber. Mediastinum: Heart size is normal. No pericardial effusion. No mediastinal or hilar adenopathy by size criteria. Thoracic aorta and central pulmonary arteries are normal in size. Esophagus is normal in caliber. No hiatal hernia. Bones and chest wall: No suspicious bony lesions. No vertebral body compression fractures. No axillary or supraclavicular adenopathy by size criteria. Thyroid gland appears normal . Abdomen: Visualized upper abdominal solid organs appear normal. Upper abdominal bowel loops are normal in caliber. IMPRESSION: Normal for age, no evidence of metastatic disease related to reported prostate carcinoma. Dictated by: Jorge Palacios M.D. on 07/27/2020 at 14:04 Approved by: Jorge Palacios M.D. on 07/27/2020 at 14:06
== END ==
PROVIDERS: PCP Family Medicine; Referring Provider Specialist; Visit Provider Specialist
DX: C61 Malignant neoplasm of prostate (principal)
CPT/HCPCS: 71260

== ENCOUNTER 2020-10-11 12:02 | Day surgery (SDC) | payer MEDICARE, OTHER, SELFPAY ==
[2020-09-02 11:56] VITALS: BMI 23.1
[2020-10-08 08:04] VITALS: BMI 23.3
[2020-10-11] VITALS (7 sets, daily range): BP systolic 118–146; BP diastolic 63–72; PULSE 55–79; RESP 10–18; TEMP 36–36.2; O2SAT 95–99; BMI 23.7
[2020-10-11] MEDS: LACTATED RINGERS 1,000 ML 42 ML IV ×2 (14:19→17:55)
[2020-10-11] MEDS: VANCOMYCIN 1,000 MG/200 ML PIGGYBACK 200 MG IV (15:29)
--- NOTE | 2020-10-11 15:32 | PM.PREOP ---
Pre-operative Note Interval Note History & Physical reviewed/Exam performed by Physician: Yes Changes to H&P: No
[2020-10-11] MEDS: GENTAMICIN 180 MG in SODIUM CHLORIDE 0.9% 100 ML 104.5 ML IV (16:25)
--- NOTE | 2020-10-11 17:08 | SUR.OPER ---
Lithotomy on padded OR bed, head on foam and gel donut, arms secured on padded arm boards at <90 degrees abduction. Legs secured in padded yellow fins stirrups.
[2020-10-11] MEDS: BUPIVACAINE 0.5% W/ EPI (PF) 30 ML VIAL INJ (17:11)
[2020-10-11] MEDS: VANCOMYCIN 1,000 MG VIAL 1000 MG TOP (17:15)
[2020-10-11] MEDS: SODIUM CHLORIDE 0.9% 1,000 ML, GENTAMICIN 80 MG IRR (17:16)
--- NOTE | 2020-10-11 18:44 | P.OP_ITS ---
Operative Date/Time/Diagnoses Date of procedure: 10/11/20 Time of procedure: 18:44 Pre-op diagnosis: Stress urinary incontinence Post-op diagnosis: same Procedure & Clinicians Procedure: 1. Placement of artificial urinary sphincter: AMS 800 control pump with IZ AMS 800 pressure regulating balloon 61-70 cm H2O AMS 4.5 cm AMS CUFF WITH IZ Same procedure as scheduled: Yes Indications: Stress urinary incontinence A instructor adjunct surgical technician was required due to the complexity of the case. The instructor adjunct surgical technician provided retraction, assistance in hemostasis, suturing and wound closure. Surgeon: Denys Gaitan Boat Deckhand: Nargis Ding Click Yes if Unassisted: No Anesthesia Type: General Operative Notes Findings: 1. Essentially normal perineal tissue planes. Closure Type: primary Specimen(s): none sent Prosthetic devices, grafts, tissues, transplants, or devices: AMS ARTIFICIAL URINARY SPHINCTER. See above specifications of components. Applied: implant(s) (AMS 800 artificial urinary sphincter) Estimated Blood Loss (mL): 50 Blood products transfused: none Tourniquet time (min): 0 Procedure in detail: Patient was positioned supine was administered general anesthesia. He was then repositioned in semi lithotomy. The lower abdomen genitalia groin and perineum were then prepped and draped in sterile fashion. A 14 Bengali Porras catheter was inserted in the bladder and the balloon inflated to 10 cc. The outflow was clamped. A compressive dressing was applied to the distal urethra to prevent or minimize intraoperative urine leakage. The midline raphe of the perineum was then infiltrated local anesthetic. A 5 cm vertical incision was then made in the midline. Blunt cautery dissection were then undertaken to divide the midline structures. The surface of the bulbar urethra was then encountered and was exposed proximally and distally. The pubic arch was identified. A blunt right angle clamp was then carefully insinuated posteriorly at the site for through and through passage. A 1 quarter-inch W[place]ield drain was then passed through this aperture. Further meticulous dissection was then undergo taken with blunt cautery and sharp dissection to create a generous space to accommodate the cuff. The measuring tape was then positioned around the proximal bulbar urethra and a measurement of 4.5 cm was noted. A cuff of the same dimensions was then prepared. Next, the skin and subcutaneous tissue overlying the right pubic symphysis was infiltrated with local anesthetic. A for approximately 4 cm transverse incision was then made in this location. The subcutaneous fat and Michelle's fascia was then divided using blunt technique down to the level of the rectus fascia. Now, using a Fine scissor the rectus fascia was carefully perforated angling down into the space of Retzius. The index finger was then insinuated in the space a generous area was then dissected for anticipated positioning of the reservoir. The pump was then advanced in the very superficial subcutaneous space in the midline scrotum from the perineal incision. Next the cuff tubing was passed through a blunt tract to the right suprapubic incision. Likewise, both of the connection tubes from the scrotal pump were advanced in the subcutaneous space and brought out through the right suprapubic incision as well. The reservoir was then filled with 23 cc of sterile saline. All tubing was purged of air and debris. A right angle connector was utilized to connect the cuff to the pump. A straight barrel connector was utilized to connect the reservoir to the pump. The connections were then very deeply in the subcutaneous fat and Michelle's fascial layer was closed with running 2-0 Vicryl. The skin was then reapproximated using 4-0 Monocryl. Small piece a Telfa was applied over the incision line and an op-site dressing was applied over this. Next the perineum was closed in multiple layers (4) utilizing running 2-0 Monocryl technique. The skin a explained to the right again a small piece a Telfa was fashion to overlie the incision. An Op site this was then applied over the perineal incision. The Porras catheter balloon was then deferred dated catheter was removed the pump was deactivated. The patient was then repositioned supine, was awakened, and transferred to a [facility] before transport to PACU. Complications: none Post-operative Condition: stable Disposition: PACU Plan for aftercare: Discharge home
--- NOTE | 2020-10-11 19:52 | SUR.PHASEII ---
Pt met criteria for discharge: VSS, denied pain or nausea, able to drink fluids without difficulty. Discharge instructions discussed with pt, all questions answered. Pt discharged home with wallace catheter with instructions to arrive at urology office at 0830 tomorrow for removal.
== END 2020-10-11 19:45 | disposition home or self-care (01) ==
PROVIDERS: PCP Family Medicine; Referring Provider Specialist; Visit Provider Specialist
PROC: (CPT 54405; principal; 2020-10-11 13:45)
DX: N39.3 Stress incontinence (female) (male) (principal); C61 Malignant neoplasm of prostate; I10 Essential (primary) hypertension
CPT/HCPCS: 54405; J1100; J2405; J2704; J3010

== ENCOUNTER → 2021-02-23 14:59 | Outpatient (CLI) | payer MEDICARE, OTHER, SELFPAY ==
[2020-11-30 11:38] VITALS: BMI 23.1
[2021-02-23 21:20] LABS: Prostate Specific Antigen < 0.064 ng/mL (0.10-4.00)
== END ==
PROVIDERS: PCP Family Medicine; Referring Provider Specialist; Visit Provider Specialist
DX: C61 Malignant neoplasm of prostate (principal); R97.20 Elevated prostate specific antigen [PSA]
CPT/HCPCS: 36415; 84153

== ENCOUNTER → 2021-05-31 09:59 | Outpatient (CLI) | payer MEDICARE, OTHER, SELFPAY ==
[2021-03-01 11:50] VITALS: BMI 23.1
[2021-05-31 20:34] LABS: Prostate Specific Antigen < 0.064 ng/mL (0.10-4.00)
== END ==
PROVIDERS: PCP Physician Assistant Medical; Visit Provider Specialist
DX: C61 Malignant neoplasm of prostate (principal)
CPT/HCPCS: 84153

== ENCOUNTER → 2021-09-05 12:02 | Outpatient (CLI) | payer MEDICARE, OTHER, SELFPAY ==
[2021-06-07 11:04] VITALS: BMI 23.1
[2021-09-06 20:32] LABS: BUN Creatinine Ratio 16.8 (6-22); Blood Urea Nitrogen 21 mg/dL (9-20); Calcium 9.9 mg/dL (8.4-10.2); Carbon Dioxide 28 mmol/L (22-32); Chloride 104 mmol/L (98-107); Estimated Glomerular Filt Rate 55.9 mL/min (>60); Glucose 123 mg/dL (80-110); HEMOLYSIS < 15 (0-50); Potassium 4.5 mmol/L (3.4-5.1); Sodium 139 mmol/L (137-145)
[2021-09-06 21:25] LABS: Prostate Specific Antigen < 0.064 ng/mL (0.10-4.00)
== END ==
PROVIDERS: PCP Physician Assistant Medical; Visit Provider Specialist
DX: N40.0 Benign prostatic hyperplasia without lower urinary tract symptoms (principal); C61 Malignant neoplasm of prostate; Z85.46 Personal history of malignant neoplasm of prostate
CPT/HCPCS: 80048; 84153

== ENCOUNTER 2021-09-17 13:58 | Emergency (ER) | payer MEDICARE, OTHER, SELFPAY ==
[2021-09-06 12:12] VITALS: BMI 23.1
[2021-09-17] VITALS (10 sets, daily range): BP systolic 143–178; BP diastolic 64–92; PULSE 61–76; RESP 19–28; TEMP 37.1; O2SAT 92–99; BMI 24.9
--- NOTE | 2021-09-17 14:05 | DI.RAD.S_ITS ---
PROCEDURE: XR CHEST 1V INDICATIONS: chest pain TECHNIQUE: One view of the chest was acquired. COMPARISON: None. FINDINGS: Surgical changes and devices: None. Lungs and pleura: Infiltrate in the left lower lobe. No pneumothorax or pleural effusion. Mediastinum: Heart size is enlarged. The aorta is tortuous. Bones and chest wall: No suspicious bony lesions. Overlying soft tissues appear unremarkable. IMPRESSION: 1. Left lower lobe infiltrate. 2. Cardiomegaly. Dictated by: Ted Hi M.D. on 09/17/2021 at 13:54 Approved by: Ted Hi M.D. on 09/17/2021 at 13:55
--- NOTE | 2021-09-17 14:05 | ED.CHESTPAIN ---
HPI - Chest Pain General Chief Complaint: Chest Pain Stated Complaint: Chest pain Time Seen by Provider: 09/17/21 14:02 History of Present Illness HPI narrative: 76M nonsmoker with history of prostate cancer, recent prostate surgery, hormone replacement therapy presents with his in the chief complaint of reproducible sharp and stabbing pleuritic type left-sided chest pain that started yesterday. It has largely been present since its onset, he states it is much worse with a deep breath. He denies any exertional component. He denies any radiation of his pain. He is not dizzy nor weak or lightheaded. He is not nauseated, has had no vomiting and denies diaphoresis. He has had no recent traumas or injuries. He denies any history of blood clot. Denies any lower extremity pain or swelling. He has had some dry cough which also worsens his pain. He denies any history of the same Related Data Home Medications Medication Instructions Recorded Confirmed lisinopril 10 mg tablet 20 mg PO DAILY tab 06/07/21 Previous Rx's Medication Instructions Recorded oxybutynin chloride 5 mg 5 mg PO DAILY #90 tab 04/07/21 tablet,extended release 24 hr (Ditropan XL) allopurinol 300 mg tablet 300 mg PO DAILY #90 tab 05/19/21 ketorolac 10 mg tablet 10 mg PO Q6H PRN #14 tab 09/17/21 Allergies Allergy/AdvReac Type Severity Reaction Status Date / Time No Known Drug Allergies Allergy Verified 09/17/21 14:10 Review of Systems Review of Systems Narrative: GENERAL: Denies chills, fatigue, malaise, fever, sweats. HEENT: Denies sinus pain, ear pain, sore throat, difficulty swallowing, dizziness. RESPIRATORY: Denies dyspnea, cough, wheezing, hemoptysis, sputum. CARDIOVASCULAR: See HPI GASTROINTESTINAL: Denies nausea, vomiting, abdominal pain, diarrhea, constipation, melena. : Denies dysuria, frequency, incontinence, hematuria, urinary retention. MUSCULOSKELETAL: denies weakness, joint pain, or bony pain SKIN: Denies rash, skin lesions, or other NEUROLOGIC: Denies weakness, headache, numbness, change in speech, confusion, seizures, incoordination. PSYCHIATRIC: No concerning psychosocial issues. 12 point review of systems is negative except for those stated above Patient History Medical History BCC (basal cell carcinoma) Encounter for postoperative wound check Family history of malignant neoplasm of prostate Family history of prostate cancer Gout History of malignant neoplasm of prostate HLD (hyperlipidemia) HTN (hypertension) Lower urinary tract symptoms (LUTS) Prostate cancer (2019) Prostate cancer MICHELLE (stress urinary incontinence), male MICHELLE (stress urinary incontinence), male Surgical History Hx of arthroscopy of shoulder Hx of bilateral cataract extraction Hx of cystoscopy (09/22/20) Hx of prostate biopsy (11/19/19) Hx of radical retropubic prostatectomy (01/20/20) Hx of tonsillectomy Status post Mohs surgery Social History household members: spouse Smoking Status: Never smoker alcohol intake: current Smoking Status: Never smoker alcohol intake frequency: 0-2 drinks per day Substance Use Type: does not use Exam Narrative Exam Narrative: GENERAL: [76] year old patient appears stated age. Well-developed patient, in mild distress. HEAD: Atraumatic. Normocephalic. EYES: Pupils equal round and reactive. Extraocular motions intact. No scleral icterus. No injection or drainage. ENT: Nose without bleeding, purulent drainage. Throat without erythema, tonsillar hypertrophy or exudate. Airway patent. NECK: Trachea midline. Non tender CARDIOVASCULAR: Regular rate and rhythm without murmurs, gallops, or rubs. RESPIRATORY: Clear to auscultation. Breath sounds equal bilaterally. No wheezes, rales, or rhonchi. GASTROINTESTINAL: Abdomen soft, non-tender, nondistended. EXTREMITIES: No edema or joint tenderness. BACK: Nontender without deformity or crepitance. No flank tenderness. NEURO: AOx3. SKIN: No rash or erythema of visible areas Initial Vital Signs Initial Vital Signs: Vital Signs Temperature 98.7 F 09/17/21 14:01 Pulse Rate 76 09/17/21 14:01 Respiratory Rate 28 H 09/17/21 14:01 Blood Pressure 178/92 H 09/17/21 14:01 Pulse Oximetry 99 09/17/21 14:01 Course Orders Ordered: ED Orders 09/17/21 14:05 XR chest 1V Stat EKG-12 Lead Stat 09/17/21 14:14 CRP [C-Reactive Protein Quant] Stat Complete Blood Count AUTO DIFF Stat Comprehensive Metabolic Panel Stat D Dimer Stat ESR [Erythrocyte Sedimentation Rate] Stat Lipase Stat NT-proBNP (BNP-Adult 18+) Stat Partial Thromboplastin Time Stat Procalcitonin Stat Prothrombin Time INR Stat Troponin & CK Cardiac Panel Stat 09/17/21 14:50 CT angio chest PE protocol Stat 09/17/21 15:03 EKG-12 Lead Stat 09/17/21 16:45 COVID19 -Nasal swab/Pre-Proc Stat Discontinued Medications Aspirin (Aspirin 81 Mg Chew Tab) 324 mg PO NOW ONE Stop: 09/17/21 14:06 Last Admin: 09/17/21 14:18 Dose: 324 mg Documented by: ATAYLOR Sodium Chloride (Normal Saline 0.9%) 1,000 mls @ 150 mls/hr IV CONT ALISON Last Admin: 09/17/21 15:07 Dose: 150 mls/hr Documented by: ATAYLOR Ketorolac Tromethamine (Ketorolac 30 Mg/Ml Vial) 15 mg IV NOW ONE Stop: 09/17/21 16:06 Last Admin: 09/17/21 16:16 Dose: 15 mg Documented by: ATAYLOR Vital Signs Vital signs: Vital Signs - 8 hr 09/17/21 14:01 09/17/21 14:13 09/17/21 14:15 Temperature 98.7 F Pulse Rate 76 66 65 Respiratory Rate 28 H 27 H 22 Blood Pressure 178/92 H 174/76 H Pulse Oximetry 99 98 97 09/17/21 14:30 09/17/21 14:45 09/17/21 15:02 Temperature Pulse Rate 62 61 66 Respiratory Rate 22 22 Blood Pressure 173/83 H 161/64 H Pulse Oximetry 95 97 95 09/17/21 15:30 09/17/21 16:00 09/17/21 16:30 Temperature Pulse Rate 62 62 61 Respiratory Rate 20 20 19 Blood Pressure 164/75 H 151/68 H Pulse Oximetry 92 96 95 09/17/21 17:00 Temperature Pulse Rate 61 Respiratory Rate 19 Blood Pressure 143/67 H Pulse Oximetry 95 MDM - Chest Pain Lab Data Result diagrams: 09/17/21 14:14 09/17/21 14:14 Labs: Lab Results 09/17/21 09/17/21 09/17/21 Range/Units 14:14 14:14 14:14 WBC 7.6 (4.5-11.0) X10^3/uL RBC 4.40 L (4.5-5.9) X10^6/uL Hgb 13.3 L (13.5-17.5) g/dL Hct 38.7 L (41-53) % MCV 87.9 (80-100) fL MCH 30.2 (26-34) PG MCHC 34.4 (30-36) % RDW 14.8 (11.6-14.8) % Plt Count 180 (150-400) X10^3/uL Neut % (Auto) 77.4 H (50-75) % Lymph % (Auto) 9.7 L (25-40) % [place] % (Auto) 11.3 (3-14) % Eos % (Auto) 0.9 L (2-4) % Baso % (Auto) 0.7 (0-2) % Neut # (Auto) 5900 (9987-8044) /uL Lymph # (Auto) 700 L (3964-8787) /uL [place] # (Auto) 900 (0-900) /uL Eos # (Auto) 100 (0-450) /uL Baso # (Auto) 100 (0-100) /uL ESR (0-15) MM/HR PT 11.3 (10.1-12.7) SECONDS INR 1.0 (0.9-1.3) APTT 30 (26.4-36.2) SECONDS D-Dimer 520 H (<230) ng/mL Sodium 138 (137-145) mmol/L Potassium 4.0 (3.4-5.1) mmol/L Chloride 103 (98-107) mmol/L Carbon Dioxide 29 (22-32) mmol/L BUN 18 (9-20) mg/dL Creatinine 1.22 (0.66-1.25) mg/dL Estimated GFR 57.4 L (>60) mL/min BUN/Creatinine Ratio 14.8 (6-22) Glucose 119 H (80-110) mg/dL Calcium 9.5 (8.4-10.2) mg/dL Total Bilirubin 0.4 (0.2-1.3) mg/dL AST 25 (17-59) IU/L ALT 31 (<50) IU/L Alkaline Phosphatase 63 (38-126) U/L Total Creatine Kinase 74 (55-170) U/L CK-MB (CK-2) TNP CK-MB (CK-2) Rel Index TNP Troponin I < 0.012 (0.01-0.034) ng/mL C-Reactive Protein (<1.0) mg/dL NT-Pro-B Natriuret Pep 199 (<450) pg/mL Total Protein 7.2 (6.3-8.2) g/dL Albumin 4.2 (3.5-5.0) g/dL Globulin 3.0 (1.7-4.1) g/dL Albumin/Globulin Ratio 1.4 (1.0-2.8) Lipase 55 (23-300) U/L Procalcitonin 0.07 (<0.5) ng/mL SARS-CoV-2 (PCR) (Negative) 09/17/21 09/17/21 09/17/21 Range/Units 14:14 14:14 16:45 WBC (4.5-11.0) X10^3/uL RBC (4.5-5.9) X10^6/uL Hgb (13.5-17.5) g/dL Hct (41-53) % MCV (80-100) fL MCH (26-34) PG MCHC (30-36) % RDW (11.6-14.8) % Plt Count (150-400) X10^3/uL Neut % (Auto) (50-75) % Lymph % (Auto) (25-40) % [place] % (Auto) (3-14) % Eos % (Auto) (2-4) % Baso % (Auto) (0-2) % Neut # (Auto) (1699-2466) /uL Lymph # (Auto) (7689-7350) /uL [place] # (Auto) (0-900) /uL Eos # (Auto) (0-450) /uL Baso # (Auto) (0-100) /uL ESR 34 H (0-15) MM/HR PT (10.1-12.7) SECONDS INR (0.9-1.3) APTT (26.4-36.2) SECONDS D-Dimer (<230) ng/mL Sodium (137-145) mmol/L Potassium (3.4-5.1) mmol/L Chloride (98-107) mmol/L Carbon Dioxide (22-32) mmol/L BUN (9-20) mg/dL Creatinine (0.66-1.25) mg/dL Estimated GFR (>60) mL/min BUN/Creatinine Ratio (6-22) Glucose (80-110) mg/dL Calcium (8.4-10.2) mg/dL Total Bilirubin (0.2-1.3) mg/dL AST (17-59) IU/L ALT (<50) IU/L Alkaline Phosphatase (38-126) U/L Total Creatine Kinase (55-170) U/L CK-MB (CK-2) CK-MB (CK-2) Rel Index Troponin I (0.01-0.034) ng/mL C-Reactive Protein 7.2 H (<1.0) mg/dL NT-Pro-B Natriuret Pep (<450) pg/mL Total Protein (6.3-8.2) g/dL Albumin (3.5-5.0) g/dL Globulin (1.7-4.1) g/dL Albumin/Globulin Ratio (1.0-2.8) Lipase (23-300) U/L Procalcitonin (<0.5) ng/mL SARS-CoV-2 (PCR) Negative (Negative) Imaging Data CT scan - chest: Radiologist's Impression: Miguel Ruth??76??M??1945 ? Allergy/Adv: No Known Drug Allergies Close Chest CTA (Signed) Ted Hi - 09/17/21 Chest X-Ray (Signed) Ted Hi - 09/17/[address] (Signed) Jorge Palacios - 07/27/20 Lumbar Spine MRI (Signed) Carmina Cortez - 04/21/20 Chest/Abdomen/Pelvis CT (Signed) Ca Montague - 03/17/20 Bone Scan Nuclear Medicine (Signed) Murtaza Adame - 03/17/20 Abdomen/Pelvis CT (Signed) Adama Newsome - 02/19/20 Pelvis MRI (Signed) Angel Mcnair - 12/15/19 Chest/Abdomen/Pelvis CT (Addendum) Angel Mcnair - 11/06/19 Bone Scan Nuclear Medicine (Signed) Angel Mcnair - 11/06/19 Launch?[place] [id number] CT Scan Report Signed Patient: Miguel Ruth MR#: [id number] : 1945 Acct:[id number] Age/Sex: 76 / M Date of Service: 09/17/21 Loc: ED Accession Number: [id number] ?? Procedure: CT angio chest PE protocol Ordering Provider: Olvin Holloway D.O. PROCEDURE:? CT ANGIO CHEST PE PROTOCOL ? INDICATIONS:? pleuritic chest pain, SOB, hx CA, hormone replacement, Dimer ? TECHNIQUE:? After the administration of intravenous contrast, 2 mm thick sections acquired from the pulmonary apices to the posterior costophrenic angles.? 3-dimensional maximum intensity projection (MIP) coronal and sagittal reformats were then acquired through the thorax.? For radiation dose reduction, the following was used:? automated exposure control, adjustment of mA and/or kV according to patient size.? ? COMPARISON:? None. ? FINDINGS:? Image quality:? Excellent.? ? Pulmonary arteries:? Pulmonary arteries are normal in size, and demonstrate no intraluminal filling defects to suggest central pulmonary embolism.? ? Lungs and pleura:? Mild bibasilar atelectasis.? The lungs are otherwise clear.? No pleural effusions or pneumothorax.? Central and peripheral airways are patent.? ? Mediastinum:? Heart size is normal, without pericardial effusion.? The coronary arteries have atherosclerotic calcifications.? No mediastinal or hilar adenopathy.? Thoracic aorta is normal in caliber and enhancement.? There is a small hiatal hernia. ? Bones and chest wall:? No suspicious bony lesions.? Ribs and thoracic spine appear intact throughout.? Thyroid gland is normal.? No axillary or supraclavicular adenopathy.? ? Abdomen:? Visualized upper abdominal solid organs appear normal in the early arterial phase of enhancement.? ? IMPRESSION:? 1. No pulmonary embolism. 2. Mild left basilar atelectasis, otherwise the lungs are clear. 3. Coronary artery calcifications. ? ? Dictated by: Ted Hi M.D. on 09/17/2021 at 14:29 ? ? Approved by: Ted Hi M.D. on 09/17/2021 at 14:32 ? ECG Data Interpretation: EKG is normal sinus rhythm rate [ 69] and free of any signs of ischemia or ectopy. No ST segmental elevation , Non-specific T wave abnormalities repeat is unchanged. Both reviewed witn on- call cardiology MDM Narrative Medical decision making narrative: 76-year-old male presents with reproducible sharp and stabbing isolated left anterior chest pain that is worse with motion, deep breath, cough and leaning forward. Cardiac ischemia is considered but there is no exertional component, no radiation, no shortness of breath, nausea, vomiting or diaphoresis. EKGs showed no classic ischemic findings, these EKGs have been reviewed by cardiology who sure the same opinion. Troponin is unremarkable. Given his risk for PE with prostate cancer, recent procedure and hormone replacement a D-dimer was ordered which was found to be elevated for his age at which point a CT angiogram was ordered. There is no evidence of pulmonary embolism, pneumonia, pericardial effusion or other significant finding. Otherwise labs demonstrate some nonspecific change such as inflammatory markers being elevated. I did discuss the potential of pericarditis with Cardiology and patient does not me complete criteria, colchicine not indicated, recommendation for anti-inflammatories only. Patient is stable, symptoms, diagnosis and plan of and discussed with patient who agrees with and understands the plan. Return precautions given and questions answered to his apparent satisfaction Discharge Plan Departure Patient Disposition: Home Clinical Impression: Pleuritic chest pain Instructions: DI for Atypical Chest Pain Activity Restrictions/Additional Instructions: *You have been diagnosed with [pleuritic chest pain. Your history, physical exam, EKGs, labs and imaging are very reassuring. As we discussed I went over your case with cardiology who shares the opinion that this is unlikely to be cardiac in nature. Additionally, there is no evidence of a blood clot in your chest, pneumonia, collapsed lung or fluid around your heart. *What to do: *Please continue to take your regular medications as directed. [ x] New medication prescriptions sent to your pharmacy: [[facility] ] [ ] New medication written as a paper prescription [ ] No new medications given *Please follow up with your primary care provider in 2-3 days, call for an appointment. Let them know you were seen in the Emergency Department and that we ask that you be seen in follow up. We will electronically transmit a record of today's note if your PCP is in our system *If you do not have a primary care provider please contact the [facility] Resource line at [phone]. They will ask some questions about your medical history and help get you set up with a doctor in the community. *Return to Emergency Department if you should have any new, worsening or concerning symptoms, such as [fever greater than 101 F, shaking chills, worsening pain, persistent vomiting or other bothersome symptoms] Prescriptions: New ketorolac 10 mg tablet 10 mg PO Q6H PRN (Reason: pain) Qty: 14 0RF No Action oxybutynin chloride [Ditropan XL] 5 mg tablet extended release 24hr 5 mg PO DAILY Qty: 90 3RF Rx Instructions: Take 1-3 tablets p.o. q.day as needed allopurinol 300 mg tablet 300 mg PO DAILY Qty: 90 3RF lisinopril 10 mg tablet 20 mg PO DAILY 0RF Referrals: Sylvia Richmond PA-C [Primary Care Provider] -
[2021-09-17] MEDS: ASPIRIN 81 MG CHEW TAB 324 MG PO (14:18)
[2021-09-17 14:20] LABS: Add Manual Diff / Slide Review NO; Basophils Absolute Auto 100 /uL (0-100); Basophils Percent Auto 0.7 % (0-2); Eosinophils Absolute Auto 100 /uL (0-450); Eosinophils Percent Auto 0.9 % (2-4); Hematocrit 38.7 % (41-53); Hemoglobin 13.3 g/dL (13.5-17.5); Lymphocytes Absolute Auto 700 /uL (1100-4500); Lymphocytes Percent Auto 9.7 % (25-40); Mean Corpuscular HGB Conc 34.4 % (30-36); Mean Corpuscular Hemoglobin 30.2 PG (26-34); Mean Corpuscular Volume 87.9 fL (80-100); Monocytes Absolute Auto 900 /uL (0-900); Monocytes Percent Auto 11.3 % (3-14); Neutrophils Absolute Auto 5900 /uL (1500-7000); Neutrophils Percent Auto 77.4 % (50-75); Platelet Count 180 X10^3/uL (150-400); Red Cell Distribution Width 14.8 % (11.6-14.8); White Blood Cell Count 7.6 X10^3/uL (4.5-11.0)
[2021-09-17 14:30] LABS: Prothrombin Time 11.3 SECONDS (10.1-12.7)
[2021-09-17 14:33] LABS: D Dimer 520 ng/mL (<230); PTT Partial Thromboplastin Tim 30 SECONDS (26.4-36.2)
[2021-09-17 14:35] LABS: Alanine Aminotransferase 31 IU/L (<50); Albumin 4.2 g/dL (3.5-5.0); Albumin Globulin Ratio 1.4 (1.0-2.8); Alkaline Phosphatase 63 U/L (38-126); Aspartate Aminotransferase 25 IU/L (17-59); BUN Creatinine Ratio 14.8 (6-22); Bilirubin Total 0.4 mg/dL (0.2-1.3); Blood Urea Nitrogen 18 mg/dL (9-20); Calcium 9.5 mg/dL (8.4-10.2); Carbon Dioxide 29 mmol/L (22-32); Chloride 103 mmol/L (98-107); Creatine Kinase 74 U/L (55-170); Estimated Glomerular Filt Rate 57.4 mL/min (>60); Glucose 119 mg/dL (80-110); HEMOLYSIS < 15 (0-50); Lipase 55 U/L (23-300); Sodium 138 mmol/L (137-145); Total Protein 7.2 g/dL (6.3-8.2)
[2021-09-17 14:39] LABS: C-Reactive Protein Quant 7.2 mg/dL (<1.0)
[2021-09-17 14:47] LABS: NT-proBNP (BNP-Adult 18+) 199 pg/mL (<450); Troponin I < 0.012 ng/mL (0.01-0.034)
--- NOTE | 2021-09-17 14:50 | DI.CT.S_ITS ---
PROCEDURE: CT ANGIO CHEST PE PROTOCOL INDICATIONS: pleuritic chest pain, SOB, hx CA, hormone replacement, Dimer TECHNIQUE: After the administration of intravenous contrast, 2 mm thick sections acquired from the pulmonary apices to the posterior costophrenic angles. 3-dimensional maximum intensity projection (MIP) coronal and sagittal reformats were then acquired through the thorax. For radiation dose reduction, the following was used: automated exposure control, adjustment of mA and/or kV according to patient size. COMPARISON: None. FINDINGS: Image quality: Excellent. Pulmonary arteries: Pulmonary arteries are normal in size, and demonstrate no intraluminal filling defects to suggest central pulmonary embolism. Lungs and pleura: Mild bibasilar atelectasis. The lungs are otherwise clear. No pleural effusions or pneumothorax. Central and peripheral airways are patent. Mediastinum: Heart size is normal, without pericardial effusion. The coronary arteries have atherosclerotic calcifications. No mediastinal or hilar adenopathy. Thoracic aorta is normal in caliber and enhancement. There is a small hiatal hernia. Bones and chest wall: No suspicious bony lesions. Ribs and thoracic spine appear intact throughout. Thyroid gland is normal. No axillary or supraclavicular adenopathy. Abdomen: Visualized upper abdominal solid organs appear normal in the early arterial phase of enhancement. IMPRESSION: 1. No pulmonary embolism. 2. Mild left basilar atelectasis, otherwise the lungs are clear. 3. Coronary artery calcifications. Dictated by: Ted Hi M.D. on 09/17/2021 at 14:29 Approved by: Ted Hi M.D. on 09/17/2021 at 14:32
[2021-09-17 14:52] LABS: Procalcitonin 0.07 ng/mL (<0.5)
[2021-09-17 14:55] LABS: Erythrocyte Sedimentation Rate 34 MM/HR (0-15)
[2021-09-17] MEDS: SODIUM CHLORIDE 0.9% 1,000 ML 150 ML IV (15:07)
[2021-09-17] MEDS: KETOROLAC 30 MG/ML VIAL 15 MG IV (16:16)
[2021-09-17 17:19] LABS: COVID19 -Nasal RAPID Negative (Negative)
== END 2021-09-17 17:32 | disposition home or self-care (01) ==
PROVIDERS: Emergency Provider Emergency Medicine; PCP Physician Assistant Medical
DX: R07.1 Chest pain on breathing (principal); Z20.822 Contact with and (suspected) exposure to COVID-19
CPT/HCPCS: 36415; 71045; 71275; 80053; 82550; 83690; 83880; 84145; 84484; 85025; 85379; 85610; 85651; 85730; 86140; 87635; 93005; 93010; 96361; 96374; 99284; 99285; C9803; J1885; Q9967

== ENCOUNTER → 2021-11-03 09:01 | Outpatient (CLI) | payer MEDICARE, OTHER, SELFPAY ==
[2021-09-06 12:12] VITALS: BMI 23.1
[2021-11-03 19:40] LABS: Alanine Aminotransferase 35 IU/L (<50); Albumin 4.2 g/dL (3.5-5.0); Albumin Globulin Ratio 1.5 (1.0-2.8); Alkaline Phosphatase 53 U/L (38-126); Aspartate Aminotransferase 31 IU/L (17-59); BUN Creatinine Ratio 17.1 (6-22); Bilirubin Total 0.5 mg/dL (0.2-1.3); Blood Urea Nitrogen 22 mg/dL (9-20); Carbon Dioxide 31 mmol/L (22-32); Chloride 103 mmol/L (98-107); Cholesterol 264 mg/dL (140-199); Estimated Glomerular Filt Rate 53.9 mL/min (>60); Globulin 2.8 g/dL (1.7-4.1); Glucose 102 mg/dL (80-110); HDL Cholesterol 63 mg/dL (40-60); HEMOLYSIS < 15 (0-50); LDL Cholesterol Calculated 161 mg/dL (<100); Sodium 138 mmol/L (137-145); Triglycerides 198 mg/dL (35-150)
[2021-11-04 15:25] LABS: Fecal Immunochemical Test Negative (Negative)
== END ==
PROVIDERS: PCP Physician Assistant Medical; Visit Provider Family Medicine
DX: Z79.899 Other long term (current) drug therapy (principal); Z12.11 Encounter for screening for malignant neoplasm of colon; E78.00 Pure hypercholesterolemia, unspecified; I10 Essential (primary) hypertension
CPT/HCPCS: 80053; 80061; 82274

== ENCOUNTER → 2021-12-01 09:02 | Outpatient (CLI) | payer MEDICARE, OTHER, SELFPAY ==
[2021-09-06 12:12] VITALS: BMI 23.1
[2021-12-01 20:58] LABS: Prostate Specific Antigen < 0.064 ng/mL (0.10-4.00)
== END ==
PROVIDERS: PCP Physician Assistant Medical; Visit Provider Specialist
DX: C61 Malignant neoplasm of prostate (principal); Z85.46 Personal history of malignant neoplasm of prostate
CPT/HCPCS: 84153

== ENCOUNTER → 2022-02-20 13:01 | Outpatient (CLI) | payer MEDICARE, OTHER, SELFPAY ==
[2021-09-06 12:12] VITALS: BMI 23.1
[2022-02-20 19:54] LABS: Prostate Specific Antigen < 0.064 ng/mL (0.10-4.00)
== END ==
PROVIDERS: PCP Physician Assistant Medical; Visit Provider Specialist
DX: R97.20 Elevated prostate specific antigen [PSA] (principal)
CPT/HCPCS: 84153

== ENCOUNTER → 2022-09-06 10:58 | Outpatient (CLI) | payer MEDICARE, OTHER, SELFPAY ==
[2022-08-15 08:52] VITALS: BMI 23.1
[2022-09-06 22:54] LABS: Cholesterol 285 mg/dL (140-199); HDL Cholesterol 62 mg/dL (40-60); LDL Cholesterol Calculated 186 mg/dL (<100); Triglycerides 187 mg/dL (35-150)
[2022-09-06 23:43] LABS: Prostate Specific Antigen < 0.064 ng/mL (0.10-4.00)
== END ==
PROVIDERS: Family Medicine; PCP Physician Assistant Medical; Referring Provider Specialist; Visit Provider Specialist
DX: E78.00 Pure hypercholesterolemia, unspecified (principal); Z85.46 Personal history of malignant neoplasm of prostate; Z80.42 Family history of malignant neoplasm of prostate
CPT/HCPCS: 36415; 80061; 81002; 84153; 96372; 96402; 99214; J0897; J9217

== ENCOUNTER → 2022-09-11 12:24 | Outpatient (CLI) | payer MEDICARE, OTHER, SELFPAY ==
[2022-08-15 08:52] VITALS: BMI 23.1
--- NOTE | 2022-09-11 12:26 | DI.RAD.S_ITS ---
PROCEDURE: XR KNEE RT 3V INDICATIONS: RIGHT KNEE PAIN TECHNIQUE: 3 views of the knee were acquired. COMPARISON: None. FINDINGS: Bones: No fractures or dislocations. No suspicious bony lesions. There are small intercondylar osteophytes and patellofemoral osteophytes. There is a small patellar enthesophyte. Soft tissues: No joint effusion. No suspicious soft tissue calcifications. IMPRESSION: Mild degenerative change. Dictated by: Mimi Garcia M.D. on 09/11/2022 at 15:02 Approved by: Mimi Garcia M.D. on 09/11/2022 at 15:18
== END ==
PROVIDERS: PCP Family Medicine; Referring Provider Physical Medicine & Rehabilitation; Visit Provider Physical Medicine & Rehabilitation
DX: M17.11 Unilateral primary osteoarthritis, right knee (principal); M25.561 Pain in right knee; M54.41 Lumbago with sciatica, right side
CPT/HCPCS: 73562; 99213

== ENCOUNTER → 2022-12-05 12:07 | Outpatient (CLI) | payer MEDICARE, OTHER, SELFPAY ==
[2022-08-15 08:52] VITALS: BMI 23.1
[2022-12-05 19:16] LABS: Cholesterol 211 mg/dL (140-199); HDL Cholesterol 71 mg/dL (40-60); LDL Cholesterol Calculated 99 mg/dL (<100); Triglycerides 206 mg/dL (35-150); Uric Acid 6.2 mg/dL (3.5-8.5)
== END ==
PROVIDERS: PCP Family Medicine; Visit Provider Family Medicine
DX: I10 Essential (primary) hypertension (principal); D64.9 Anemia, unspecified; E78.2 Mixed hyperlipidemia; M1A.00X0 Idiopathic chronic gout, unspecified site, without tophus (tophi); N18.31 Chronic kidney disease, stage 3a; Z85.46 Personal history of malignant neoplasm of prostate
CPT/HCPCS: 80061; 84550

== ENCOUNTER 2023-05-22 11:09 | Day surgery (SDC) | payer MEDICARE, OTHER, SELFPAY ==
[2022-08-15 08:52] VITALS: BMI 23.1
--- NOTE | 2023-05-22 | PATH_ITS ---
[facility] Accession Number: [id number] No. of containers..02 Tissue . 01 Material submitted: . PART A: colon - TRANSVERSE POLYP PART B: colon - DESCENDING POLYP . 01 Diagnosis: A. Transverse Colon Polyp: Tubular adenoma. . B. Descending Colon Polyp: Tubular adenoma. Melanosis coli. MRV 06/01/2023 1343 Local . 01 Electronically signed: . Hermelindo Horn MD, PhD, Pathologist NPI- [id number] . 01 Gross description: . A. Received in formalin labeled with the patient's name, and transverse polyp consists of a single ibarra soft tissue fragment measuring 0.2 cm in greatest dimension. Submitted entirely in cassette A1. B. Received in formalin labeled with the patient's name, and descending polyp consists of three ibarra soft tissue fragments ranging from 0.3 to 0.6 cm in greatest dimension. Submitted entirely in cassette B1. ([id number]) /MRV 05/24/2023 1816 Local . 01 Pathologist provided ICD-10: D12.3, D12.4, K52.89 . 01 CPT . 586509, [id number] Specimen Comment: A courtesy copy of this report has been sent to [phone] Performed at: 01 [facility] [address] [place] [address], [place], [place] [id number] MD Angel Jackson MD Phone: [phone]
[2023-05-22 11:25] VITALS: BP 186/74; PULSE 55; RESP 17; TEMP 35.7; O2SAT 99; BMI 24.3
[2023-05-22] MEDS: LACTATED RINGERS 1,000 ML 200 ML IV (11:38)
--- NOTE | 2023-05-22 12:26 | PM.HP.1 ---
History of Present Illness History of Present Illness Date Patient Seen: 05/22/23 Time Patient Seen: 12:27 Chief complaint: SDC Narrative: 78-year-old male with recurrent rectal bleeding here for diagnostic colonoscopy and possible hemorrhoidal banding. Please refer to the H and P from March 2023 for further detail. No significant interval changes in health. [facility] Medical History BCC (basal cell carcinoma) Family history of malignant neoplasm of prostate Gout HLD (hyperlipidemia) HTN (hypertension) Prostate cancer (2019) Right knee DJD MICHELLE (stress urinary incontinence), male Surgical History Hx of arthroscopy of shoulder Hx of bilateral cataract extraction Hx of cystoscopy (09/22/20) Hx of prostate biopsy (11/19/19) Hx of radical retropubic prostatectomy (01/20/20) Hx of tonsillectomy Status post Mohs surgery Social History marital status: household members: spouse lives independently: Yes occupational status: previously employed Smoking Status: Never smoker alcohol intake: current substance use type: does not use Meds Home Medications and Allergies Home Medications Medication Instructions Recorded Confirmed Type oxybutynin chloride 5 mg 5 mg PO DAILY #180 tabs 04/13/22 05/22/23 Rx tablet,extended release 24 hr lisinopril 20 mg tablet 20 mg PO DAILY #90 tabs 12/05/22 05/22/23 Rx atorvastatin 20 mg tablet (Lipitor) 20 mg PO BEDTIME #180 tabs 12/06/22 05/22/23 Rx sodium,potassium,mag sulfates 17.5 See Rx Instructions PO .COMPLEX 03/30/23 05/22/23 Rx gram-3.13 gram-1.6 gram oral soln #354 mL (Suprep Bowel Prep Kit) allopurinol 100 mg tablet 300 mg PO DAILY #180 tabs 04/19/23 05/22/23 Rx Allergies Allergy/AdvReac Type Severity Reaction Status Date / Time No Known Drug Allergies Allergy Verified 03/30/23 11:00 Exam Vital Signs (past 8 hours): - 05/22/23 11:25 Temperature 96.2 F L Pulse Rate 55 L Respiratory Rate 17 Blood Pressure 186/74 H Pulse Oximetry 99 Oxygen Delivery Method Room Air Oxygen Delivery Method Room Air Narrative Exam Narrative: General adult male alert oriented no acute distress Chest nonlabored respiration Abdomen soft nontender nondistended Assessment & Plan Assessment and plan (1) Bright red blood per rectum: Status: Acute Assessment & Plan narrative: 78-year-old man with rectal bleeding here for diagnostic colonoscopy and possible hemorrhoidal banding. Technical details were discussed. Risks, benefits, alternatives explained. Risks including but not limited to myocardial infarction, aspiration, bleeding, pain, missed lesion, incomplete examination, need for further radiographic studies, colonic perforation, and need for major abdominal surgery were discussed. All questions were answered to their satisfaction, and they are in agreement with this plan.
[2023-05-22 13:08] VITALS: BP 103/56; PULSE 50; RESP 20; TEMP 36.7; O2SAT 95
--- NOTE | 2023-05-22 13:10 | P.OP.COLON_ITS ---
Operative Date/Time/Diagnoses Date of procedure: 05/22/23 Time of procedure: 13:11 Pre-op diagnosis: Rectal bleeding Post-op diagnosis: same Procedure & Clinicians Study performed: Colonoscopy and hemorrhoidal banding Same procedure as scheduled: Yes Indications: 78-year-old man with rectal bleeding here for diagnostic colonoscopy and hemorr hoidal banding Surgeon: Jason Corrales Procedure Notes Procedure in detail: The history and physical was performed/updated and the patient is ASA class is 2. The procedure was discussed in detail with the patient. Potential risks complications including infection, bleeding, missed diagnosis, perforation, need for surgery, and were explained. Their questions were answered and informed consent was obtained. Patient was brought to the procedure room and placed standard monitoring equipment. The patient's vital signs were monitored continuously throughout the entire procedure. Prior to starting time-out was performed. The patient was placed in the left lateral recumbent position. Procedural sedation was administered by anesthesia. Examination began with a thorough inspection of the perianal area there was no evidence of fissures, fistulae, external hemorrhoids or cutaneous malignancy. The colonoscopy scope was then placed into the anal canal and was advanced to the cecum, which was identified by the ileocecal valve, the appendiceal orifice and the confluence of the taenia. The scope was then slowly withdrawn examining colon thoroughly in all directions, irrigating it of any residual stool. Transverse colon-5 mm polyp removed with biopsy forceps Descending colon 5 mm polyp removed with biopsy forceps Rectum-grade 1 internal hemorrhoids Following completion of the colonoscopy the anoscope was inserted. The left lateral and the right posterior hemorrhoidal pedicles were prominent. Each pedicle was grasped with the suction ligated and then was doubly ligated at its base. The patient tolerated the procedure well. They will be discharged once criteria are met. The prep was of good/excellent quality. The withdrawl time was 7 minutes. Specimen(s): other (Transverse and descending colonic polyps) Impression: Colonic polyps x2. Internal hemorrhoids. Post-procedure Recommendations: High fiber diet Plan for aftercare: Will notify with pathology results Josep bath t.i.d. as needed OTC pain control Disposition: same day surgery
[2023-05-22 13:13] VITALS: BP 112/57; PULSE 49; RESP 12; TEMP 36.7; O2SAT 97
[2023-05-22 13:18] VITALS: BP 131/65; PULSE 48; RESP 12; TEMP 36.7; O2SAT 99
[2023-05-22 13:29] VITALS: BP 127/65; PULSE 50; RESP 14; O2SAT 98
--- NOTE | 2023-05-22 13:33 | SUR.PHASEII ---
taught pt how to assemble and use sits bath. Pt verbalized understanding
== END 2023-05-22 13:36 | disposition home or self-care (01) ==
PROVIDERS: PCP Family Medicine; Referring Provider Surgery; Visit Provider Surgery
PROC: 0DJD8ZZ Inspection of Lower Intestinal Tract, Via Natural or Artificial Opening Endoscopic (ICD-10-PCS; CPT 45378; principal; 2023-05-22 12:30)
DX: K62.5 Hemorrhage of anus and rectum (principal); K64.0 First degree hemorrhoids; D12.3 Benign neoplasm of transverse colon; D12.4 Benign neoplasm of descending colon; K63.89 Other specified diseases of intestine
CPT/HCPCS: 45380; 46221

== ENCOUNTER → 2023-05-23 10:33 | Outpatient (CLI) | payer MEDICARE, OTHER, SELFPAY ==
[2022-08-15 08:52] VITALS: BMI 23.1
[2023-05-23 20:12] LABS: Add Manual Diff / Slide Review NO; Basophils Absolute Auto 0 /uL (0-100); Basophils Percent Auto 0.9 % (0-2); Eosinophils Absolute Auto 100 /uL (0-450); Hematocrit 36.9 % (41-53); Hemoglobin 12.6 g/dL (13.5-17.5); Lymphocytes Absolute Auto 800 /uL (1100-4500); Lymphocytes Percent Auto 15.7 % (25-40); Mean Corpuscular HGB Conc 34.2 % (30-36); Mean Corpuscular Hemoglobin 29.8 PG (26-34); Mean Corpuscular Volume 87.1 fL (80-100); Monocytes Absolute Auto 500 /uL (0-900); Monocytes Percent Auto 9.7 % (3-14); Neutrophils Absolute Auto 3700 /uL (1500-7000); Neutrophils Percent Auto 71.7 % (50-75); Platelet Count 170 X10^3/uL (150-400); Red Blood Cell Count 4.24 X10^6/uL (4.5-5.9); Red Cell Distribution Width 13.8 % (11.6-14.8); White Blood Cell Count 5.2 X10^3/uL (4.5-11.0)
[2023-05-23 20:13] LABS: HEMOLYSIS < 15 (0-50); Iron 84 ug/dL (49-181)
[2023-05-23 20:19] LABS: Alanine Aminotransferase 47 IU/L (<50); Albumin 4.2 g/dL (3.5-5.0); Albumin Globulin Ratio 1.8 (1.0-2.8); Alkaline Phosphatase 72 U/L (38-126); Aspartate Aminotransferase 37 IU/L (17-59); Bilirubin Total 0.4 mg/dL (0.2-1.3); Blood Urea Nitrogen 18 mg/dL (9-20); Calcium 9.6 mg/dL (8.4-10.2); Carbon Dioxide 26 mmol/L (22-32); Chloride 104 mmol/L (98-107); Cholesterol 197 mg/dL (140-199); Estimated Glomerular Filt Rate > 60 mL/min (>60); Globulin 2.4 g/dL (1.7-4.1); Glucose 99 mg/dL (80-110); HDL Cholesterol 65 mg/dL (40-60); HEMOLYSIS < 15 (0-50); LDL Cholesterol Calculated 102 mg/dL (<100); Potassium 4.3 mmol/L (3.4-5.1); Sodium 138 mmol/L (137-145); Total Protein 6.6 g/dL (6.3-8.2); Triglycerides 152 mg/dL (35-150)
[2023-05-23 20:26] LABS: Percent Iron Saturation 28 % (20-50); Total Iron Binding Capacity 296 ug/dL (261-462); Transferrin 227 mg/dL (206-381)
[2023-05-23 20:41] LABS: Prostate Specific Antigen < 0.064 ng/mL (0.10-4.00)
[2023-05-23 20:43] LABS: TSH w/ Reflex to FT4 0.91 uIU/mL (0.47-4.68)
[2023-05-23 21:00] LABS: Vitamin B12 670 pg/mL (239-931)
[2023-05-25 16:24] LABS: Interpretation Positive (Negative)
== END ==
PROVIDERS: PCP Family Medicine; Visit Provider Family Medicine
DX: Z79.899 Other long term (current) drug therapy (principal); Z85.46 Personal history of malignant neoplasm of prostate; R10.9 Unspecified abdominal pain; D64.9 Anemia, unspecified; E78.2 Mixed hyperlipidemia; I10 Essential (primary) hypertension; N18.31 Chronic kidney disease, stage 3a; K62.5 Hemorrhage of anus and rectum; K21.9 Gastro-esophageal reflux disease without esophagitis
CPT/HCPCS: 80053; 80061; 82607; 83013; 83540; 83550; 84153; 84443; 85025

== ENCOUNTER → 2023-06-21 10:20 | Outpatient (CLI) | payer MEDICARE, OTHER, SELFPAY ==
[2022-08-15 08:52] VITALS: BMI 23.1
[2023-06-25 16:27] LABS: Interpretation Negative (Negative)
== END ==
PROVIDERS: PCP Family Medicine; Visit Provider Family Medicine
DX: K25.9 Gastric ulcer, unspecified as acute or chronic, without hemorrhage or perforation (principal); A04.8 Other specified bacterial intestinal infections; K21.9 Gastro-esophageal reflux disease without esophagitis; D64.9 Anemia, unspecified
CPT/HCPCS: 83013

== ENCOUNTER → 2023-12-12 11:53 | Outpatient (CLI) | payer MEDICARE, OTHER, SELFPAY ==
[2022-08-15 08:52] VITALS: BMI 23.1
[2023-12-12 19:50] LABS: Add Manual Diff / Slide Review NO; Basophils Absolute Auto 100 /uL (0-100); Basophils Percent Auto 1.2 % (0-2); Eosinophils Absolute Auto 200 /uL (0-450); Eosinophils Percent Auto 3.5 % (2-4); Hematocrit 37.3 % (41-53); Hemoglobin 12.7 g/dL (13.5-17.5); Lymphocytes Absolute Auto 1100 /uL (1100-4500); Lymphocytes Percent Auto 19.3 % (25-40); Mean Corpuscular HGB Conc 34.1 % (30-36); Mean Corpuscular Hemoglobin 29.7 PG (26-34); Mean Corpuscular Volume 86.9 fL (80-100); Monocytes Absolute Auto 600 /uL (0-900); Monocytes Percent Auto 10.3 % (3-14); Neutrophils Absolute Auto 3900 /uL (1500-7000); Neutrophils Percent Auto 65.7 % (50-75); Platelet Count 204 X10^3/uL (150-400); Red Blood Cell Count 4.29 X10^6/uL (4.5-5.9); Red Cell Distribution Width 13.7 % (11.6-14.8)
[2023-12-12 19:53] LABS: BUN Creatinine Ratio 18.3 (6-22); Blood Urea Nitrogen 23 mg/dL (9-20); Calcium 10.1 mg/dL (8.4-10.2); Carbon Dioxide 27 mmol/L (22-32); Chloride 105 mmol/L (98-107); Cholesterol 217 mg/dL (140-199); Estimated Glomerular Filt Rate 58 mL/min (>60); Glucose 94 mg/dL (80-110); HDL Cholesterol 59 mg/dL (40-60); HEMOLYSIS < 15 (0-50); LDL Cholesterol Calculated 99 mg/dL (<100); Potassium 4.6 mmol/L (3.4-5.1); Sodium 137 mmol/L (137-145); Triglycerides 296 mg/dL (35-150)
[2023-12-12 19:54] LABS: Reticulocyte Count, Percent 1.4 % (0.9-2.6)
[2023-12-12 20:27] LABS: Prostate Specific Antigen < 0.064 ng/mL (0.10-4.00)
== END ==
PROVIDERS: PCP Family Medicine; Visit Provider Family Medicine
DX: D64.9 Anemia, unspecified (principal); I10 Essential (primary) hypertension; Z85.46 Personal history of malignant neoplasm of prostate; E78.2 Mixed hyperlipidemia; Z80.42 Family history of malignant neoplasm of prostate; R39.9 Unspecified symptoms and signs involving the genitourinary system
CPT/HCPCS: 80048; 80061; 84153; 85025; 85045

== ENCOUNTER → 2023-12-27 10:49 | Outpatient (CLI) | payer MEDICARE, OTHER, SELFPAY ==
[2022-08-15 08:52] VITALS: BMI 23.1
--- NOTE | 2023-12-27 11:30 | DI.CT.S_ITS ---
PROCEDURE: CT ABDOMEN PELVIS W CON INDICATIONS: abdominal pain TECHNIQUE: After the administration of intravenous contrast, axial sections acquired from the lung bases to the pubic symphysis. Coronal and sagittal reformats were performed. For radiation dose reduction, the following was used: automated exposure control, adjustment of mA and/or kV according to patient size. COMPARISON: [facility], CT, CT ANGIO CHEST PE PROTOCOL, 09/17/2021, 14:59. [facility], MR, MR PELVIS PROSTATE RADIATION TREATMENT PROTOCOL, 01/18/2021, 12:22. [facility], CT, CT CHEST ABD PEL W CON, 11/06/2019, 11:29. [facility], CT, CT CHEST ABD PEL W CON, 03/17/2020, 11:40. [facility], CT, CT CHEST W CON, 07/27/2020, 13:44. [facility], MR, MR PELVIS PROSTATE RADIATION TREATMENT PROTOCOL, 01/31/2021, 13:52. FINDINGS: Image quality: Diagnostic. Lower Chest: Right middle lobe and lingula scars and atelectasis. ABDOMEN: Liver: No solid mass. Normal size. Mild hepatic steatosis. Gallbladder: No radiopaque gallstones or wall thickening. Biliary ducts: No biliary dilation. Pancreas: No ductal dilation. Spleen: Size is within normal limits. Adrenal Glands: No adrenal nodules. Kidneys and Ureters: No hydronephrosis. No solid mass. No complex renal cystic lesion which requires follow up. Stomach and Bowel: There is gastric wall thickening involving the gastric cardia. Normal bowel caliber. Normal appendix. Mild distal colonic wall thickening involving sigmoid colon and rectum. Mild diverticulosis without diverticulitis. Peritoneum: No abnormal intraperitoneal fluid. No free air. Ventral Wall: No significant ventral hernia. Abdominal Nodes: No retroperitoneal or mesenteric adenopathy by size criteria. Vessels: Aorta and inferior vena cava are normal in size. PELVIS: Pelvic Organs: Unremarkable. Bladder: No bladder wall thickening, accounting for underdistention. Pelvic Nodes: No enlarged lymph nodes. Miscellaneous: There is a 3.3 cm cyst in the right groin, associated with a penile prosthesis. No inguinal hernias are seen. Bones: No aggressive osseous abnormality. IMPRESSION: 1. Gastric wall thickening involving the gastric cardia. Recommend EGD if clinically indicated. 2. Mild distal colonic wall thickening involving the sigmoid colon and rectum, suggesting mild colitis/proctitis. A differential diagnosis is artifact due to lack of contrast distension. 3. Mild bladder wall thickening involving the anterior aspect of the urinary bladder, suggesting mild cystitis or sequelae of chronic bladder outlet obstruction. 4. A cystic structure in the right inguinal area measuring 3.3 cm. It appears to be associated with the penile prosthesis. Recommend clinical correlation. 5. Mild diverticulosis without diverticulitis. Dictated by: Anish Adame M.D. on 12/27/2023 at 15:52 Approved by: Anish Adame M.D. on 12/28/2023 at 10:49
== END ==
PROVIDERS: PCP Family Medicine; Referring Provider Family Medicine; Visit Provider Family Medicine
DX: K57.30 Diverticulosis of large intestine without perforation or abscess without bleeding (principal); K76.0 Fatty (change of) liver, not elsewhere classified; R10.9 Unspecified abdominal pain; Z87.11 Personal history of peptic ulcer disease; Z85.46 Personal history of malignant neoplasm of prostate
CPT/HCPCS: 74177; Q9967

== ENCOUNTER 2024-03-21 13:40 | Day surgery (SDC) | payer MEDICARE, OTHER, SELFPAY ==
[2022-08-15 08:52] VITALS: BMI 23.1
--- NOTE | 2024-03-21 | PATH_ITS ---
[facility] Accession Number: [id number] No. of containers..01 Tissue . 01 Material submitted: . esophagus, E-G Junction - GE JUNCTION . 01 Diagnosis: GASTROESOPHAGEAL JUNCTION, BIOPSY: Squamocolumnar junctional mucosa with mild chronic inflammation. Negative for specialized intestinal metaplasia on alcian blue stain. Negative for dysplasia or malignancy. MRV 03/27/2024 1410 Local . 01 Electronically signed: . Hermelindo Horn MD, PhD, Pathologist NPI- [id number] . 01 Gross description: . Received in formalin with two patient identifiers and GE junction, is a single ibarra soft tissue fragment, 0.5 cm in greatest dimension. Submitted in A1. ([id number]) /MRV 03/24/2024 1849 Local . 01 Microscopic: . An AB/PAS stain is negative for goblet cells. A control stain shows appropriate reactivity. . 01 Pathologist provided ICD-10: K20.80 . 01 CPT . 608847, [id number] Specimen Comment: A courtesy copy of this report has been sent to [phone] Performed at: [address] [facility] [address], [place], [place] [id number] MD Angel Jackson MD Phone: [phone]
[2024-03-21 14:07] VITALS: BP 126/67; PULSE 56; RESP 16; TEMP 36.8; O2SAT 97
--- NOTE | 2024-03-21 14:09 | PM.PREOP ---
Pre-operative Note Interval Note History & Physical reviewed/Exam performed by Physician: Yes Changes to H&P: No
[2024-03-21] MEDS: LACTATED RINGERS 1,000 ML 42 ML IV (14:17)
[2024-03-21 15:01] VITALS: BP 121/63; PULSE 58; RESP 19; TEMP 36.2; O2SAT 96
[2024-03-21 15:06] VITALS: BP 126/59; PULSE 53; RESP 18; O2SAT 98
--- NOTE | 2024-03-21 15:07 | PM.OP.EGD ---
Operative Date/Time/Diagnoses Date of procedure: 03/21/24 Time of procedure: 15:07 Pre-op diagnosis: Abdominal pain Post-op diagnosis: other (Gastritis) Procedure & Clinicians Study performed: Esophagogastroduodenoscopy Same procedure as scheduled: Yes Indications: Unexplained abdominal pain Surgeon: Jason Corrales Procedure Notes Procedure in detail: The history and physical was performed/updated and the patient is ASA class is 2. The procedure was discussed in detail with the patient. Potential risks complications including infection, bleeding, missed diagnosis, perforation, need for surgery, and were explained. Their questions were answered and informed consent was obtained. Patient placed in left lateral decubitus position. Time out was performed. Procedural sedation was administered by Anesthesia. A bite block was placed. the scope was inserted into the mouth and advanced through the esophagus and into the stomach. The pylorus was intubated and the duodenum was examined to the 2nd portion. The scope was then withdrawn into the stomach and was retroflexed. The stomach was decompressed and scope was withdrawn slowly through the esophagus. FINDINGS -mild gastritis within the cardia. Flecks of clot no active hemorrhage or ulcer. -biopsy of GE junction performed with forceps. The patient tolerated the procedure well and will be discharged when they meet criteria. Specimen(s): other (GE junction) Impression: Gastritis Post-procedure Plan for aftercare: Omeprazole 20 mg daily x1 month Disposition: same day surgery
[2024-03-21 15:11] VITALS: PULSE 59; RESP 16; TEMP 36.2; O2SAT 97
[2024-03-21 15:18] VITALS: BP 129/64; PULSE 54; RESP 16; O2SAT 98
== END 2024-03-21 15:26 | disposition home or self-care (01) ==
PROVIDERS: PCP Family Medicine; Referring Provider Surgery; Visit Provider Surgery
PROC: 0DJ08ZZ Inspection of Upper Intestinal Tract, Via Natural or Artificial Opening Endoscopic (ICD-10-PCS; CPT 43235; principal; 2024-03-21 14:30)
DX: R10.9 Unspecified abdominal pain (principal); K29.50 Unspecified chronic gastritis without bleeding
CPT/HCPCS: 43239

== ENCOUNTER → 2024-06-05 09:30 | Outpatient (CLI) | payer MEDICARE, OTHER, SELFPAY ==
[2022-08-15 08:52] VITALS: BMI 23.1
--- NOTE | 2024-06-05 09:31 | DI.MG.S_ITS ---
MALE BILATERAL DIGITAL DIAGNOSTIC MAMMOGRAM 3D/2D: 06/05/2024 CLINICAL: Focal right breast pain. No prior exams were available for comparison. No significant masses, calcifications, or other findings are seen in either breast. Right greater than left gynecomastia is present. IMPRESSION: BENIGN There is no mammographic evidence of malignancy. Right greater than left gynecomastia is present, corresponding to clinical concern. Clinical evaluation recommended. If there are new or worsening symptoms, particularly for any new palpable finding, consider repeat imaging with diagnostic mammogram and possible ultrasound. This exam was interpreted at Station ID: [id number]. NOTE: For mammograms, a report in lay terms will be sent to the patient. Approximately 15% of breast malignancies will not be visualized mammographically. In the management of a palpable breast mass, a negative mammogram must not discourage biopsy of a clinically suspicious lesion. Electronically Signed By: Thierno Das M.D. lc/:06/05/2024 10:21:56 letter sent: Clinical Evaluation ACR BI-RADS Category 2: Benign Finding(s) 3342F
== END ==
PROVIDERS: PCP Family Medicine; Referring Provider Family Medicine; Visit Provider Family Medicine
DX: N64.4 Mastodynia (principal); N62 Hypertrophy of breast
CPT/HCPCS: 77066; G0279

== ENCOUNTER → 2024-06-25 11:01 | Outpatient (CLI) | payer MEDICARE, OTHER, SELFPAY ==
[2022-08-15 08:52] VITALS: BMI 23.1
[2024-06-25 20:28] LABS: Add Manual Diff / Slide Review NO; Basophils Absolute Auto 0 /uL (0-100); Basophils Percent Auto 0.7 % (0-2); Eosinophils Absolute Auto 100 /uL (0-450); Eosinophils Percent Auto 1.9 % (2-4); Hematocrit 36.9 % (41-53); Hemoglobin 12.5 g/dL (13.5-17.5); Lymphocytes Absolute Auto 1200 /uL (1100-4500); Lymphocytes Percent Auto 23.8 % (25-40); Mean Corpuscular HGB Conc 33.9 % (30-36); Mean Corpuscular Hemoglobin 30.1 PG (26-34); Mean Corpuscular Volume 88.8 fL (80-100); Monocytes Absolute Auto 600 /uL (0-900); Monocytes Percent Auto 11.6 % (3-14); Neutrophils Absolute Auto 3200 /uL (1500-7000); Platelet Count 200 X10^3/uL (150-400); Red Blood Cell Count 4.16 X10^6/uL (4.5-5.9); White Blood Cell Count 5.2 X10^3/uL (4.5-11.0)
[2024-06-25 20:38] LABS: Cholesterol 206 mg/dL (140-199); HDL Cholesterol 62 mg/dL (40-60); LDL Cholesterol Calculated 95 mg/dL (<100); Triglycerides 246 mg/dL (35-150)
[2024-06-25 21:14] LABS: Prostate Specific Antigen < 0.064 ng/mL (0.10-4.00)
== END ==
PROVIDERS: PCP Family Medicine; Visit Provider Family Medicine
DX: Z85.46 Personal history of malignant neoplasm of prostate (principal); E78.2 Mixed hyperlipidemia; K31.89 Other diseases of stomach and duodenum; R10.9 Unspecified abdominal pain; Z92.3 Personal history of irradiation; D64.9 Anemia, unspecified
CPT/HCPCS: 80061; 84153; 85025

== ENCOUNTER → 2025-01-05 10:36 | Outpatient (CLI) | payer MEDICARE, OTHER, SELFPAY ==
[2022-08-15 08:52] VITALS: BMI 23.1
[2025-01-05 19:04] LABS: Add Manual Diff / Slide Review NO; Basophils Absolute Auto 100 /uL (0-100); Basophils Percent Auto 1.2 % (0-2); Eosinophils Absolute Auto 100 /uL (0-450); Eosinophils Percent Auto 1.7 % (2-4); Hematocrit 40.6 % (41-53); Hemoglobin 13.7 g/dL (13.5-17.5); Lymphocytes Absolute Auto 1100 /uL (1100-4500); Mean Corpuscular HGB Conc 33.7 % (30-36); Mean Corpuscular Hemoglobin 29.9 PG (26-34); Mean Corpuscular Volume 88.6 fL (80-100); Monocytes Absolute Auto 400 /uL (0-900); Neutrophils Absolute Auto 2800 /uL (1500-7000); Neutrophils Percent Auto 63.1 % (50-75); Platelet Count 176 X10^3/uL (150-400); Red Blood Cell Count 4.58 X10^6/uL (4.5-5.9); Red Cell Distribution Width 13.9 % (11.6-14.8); White Blood Cell Count 4.4 X10^3/uL (4.5-11.0)
[2025-01-05 19:10] LABS: BUN Creatinine Ratio 14.3 (6-22); Blood Urea Nitrogen 20 mg/dL (9-20); Calcium 9.8 mg/dL (8.4-10.2); Carbon Dioxide 23 mmol/L (22-32); Chloride 107 mmol/L (98-107); Cholesterol 199 mg/dL (140-199); Estimated Glomerular Filt Rate 50 mL/min (>60); Glucose 110 mg/dL (80-110); HDL Cholesterol 68 mg/dL (40-60); HEMOLYSIS < 15 (0-50); LDL Cholesterol Calculated 96 mg/dL (<100); Potassium 4.5 mmol/L (3.4-5.1); Sodium 138 mmol/L (137-145); Triglycerides 174 mg/dL (35-150); Uric Acid 9.7 mg/dL (3.5-8.5)
[2025-01-05 20:00] LABS: Prostate Specific Antigen < 0.064 ng/mL (0.10-4.00)
== END ==
PROVIDERS: PCP Family Medicine; Visit Provider Family Medicine
DX: I12.9 Hypertensive chronic kidney disease with stage 1 through stage 4 chronic kidney disease, or unspecified chronic kidney disease (principal); Z85.46 Personal history of malignant neoplasm of prostate; D64.9 Anemia, unspecified; M1A.00X0 Idiopathic chronic gout, unspecified site, without tophus (tophi); N18.31 Chronic kidney disease, stage 3a; K21.9 Gastro-esophageal reflux disease without esophagitis; E78.2 Mixed hyperlipidemia
CPT/HCPCS: 80048; 80061; 84153; 84550; 85025

== ENCOUNTER → 2025-02-11 11:03 | Outpatient (CLI) | payer MEDICARE, SELFPAY ==
[2022-08-15 08:52] VITALS: BMI 23.1
[2025-02-11 19:02] LABS: Phosphorous 3.3 mg/dL (2.3-3.7)
[2025-02-11 19:19] LABS: Vitamin D 25 Hydroxy (D3) 36.1 ng/mL (30.0-100.0)
[2025-02-12 15:39] LABS: Hepatitis B Surface Antigen NEGATIVE s/c (NEGATIVE)
[2025-02-12 15:57] LABS: HIV 1 & 2 Ab/Ag 4th Gen Combo NEGATIVE (NEGATIVE); Hep C Virus Ab w/Reflex Quant NEGATIVE s/c (NEGATIVE)
[2025-02-13 09:40] LABS: ANA Screen, IFA Negative (.)
[2025-02-13 14:36] LABS: Albumin 3.7 g/dL (2.9-4.4); Alpha 1 Globulin 0.2 g/dL (0.0-0.4); Alpha 2 Globulin 0.8 g/dL (0.4-1.0); Gamma Globulin 0.9 g/dL (0.4-1.8); Protein, Total 6.6 g/dL (6.0-8.5)
[2025-02-13 19:07] LABS: Antimyeloperoxidase Antibodies <0.2 units (0.0-0.9); Antiproteinase 3 Antibodies <0.2 units (0.0-0.9); Cytoplasmic C-ANCA <1:20 titer (Neg:<1:20); Perinuclear P-ANCA <1:20 titer (Neg:<1:20)
[2025-02-16 12:40] LABS: Alpha-1 Globulin, Ur 8.5 % (.); Beta Globulin, Ur 31.1 % (.); Gamma Globulin, Ur 24.2 % (.); M-Spike % Not Observed % (Not Observed); Urine Total Protein 4.2 mg/dL (Not Estab.)
== END ==
PROVIDERS: PCP Family Medicine; Visit Provider Family Medicine
DX: N18.31 Chronic kidney disease, stage 3a (principal); N17.9 Acute kidney failure, unspecified
CPT/HCPCS: 82306; 84100; 84155; 84156; 84165; 84166; 86038; 86256; 86803; 87340; 87389

== ENCOUNTER → 2025-08-10 10:41 | Outpatient (CLI) | payer MEDICARE, OTHER, SELFPAY ==
[2022-08-15 08:52] VITALS: BMI 23.1
[2025-08-10 18:37] LABS: Add Manual Diff / Slide Review NO; Hematocrit 35.4 % (41-53); Hemoglobin 12.0 g/dL (13.5-17.5); Lymphocytes Absolute Auto 1200 /uL (1100-4500); Mean Corpuscular HGB Conc 34.0 % (30-36); Mean Corpuscular Hemoglobin 30.3 PG (26-34); Mean Corpuscular Volume 89.1 fL (80-100); Platelet Count 194 X10^3/uL (150-400)
[2025-08-10 18:59] LABS: Blood Urea Nitrogen 17 mg/dL (9-20); Calcium 9.4 mg/dL (8.4-10.2); Carbon Dioxide 25 mmol/L (22-32); Chloride 106 mmol/L (98-107); Cholesterol 184 mg/dL (140-199); Estimated Glomerular Filt Rate 56 mL/min (>60); Glucose 111 mg/dL (70-99); HDL Cholesterol 62 mg/dL (40-60); HEMOLYSIS < 15 (0-50); Potassium 4.7 mmol/L (3.4-5.1); Sodium 139 mmol/L (137-145); Triglycerides 193 mg/dL (35-150); Uric Acid 4.6 mg/dL (3.5-8.5)
[2025-08-10 19:39] LABS: Prostate Specific Antigen < 0.064 ng/mL (0.10-4.00)
== END ==
PROVIDERS: PCP Family Medicine; Visit Provider Family Medicine
DX: E78.2 Mixed hyperlipidemia (principal); I12.9 Hypertensive chronic kidney disease with stage 1 through stage 4 chronic kidney disease, or unspecified chronic kidney disease; N18.31 Chronic kidney disease, stage 3a; M1A.00X0 Idiopathic chronic gout, unspecified site, without tophus (tophi); Z85.46 Personal history of malignant neoplasm of prostate
CPT/HCPCS: 80048; 80061; 84153; 84550; 85025